=== PATIENT | female | born 2000 | race Caucasian/White ===

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

== ENCOUNTER 2022-02-21 02:21 | Day surgery (SDC) | payer OTHER, SELFPAY ==
--- NOTE | 2022-02-17 15:32 | SUR.PREOP ---
Report to the Outpatient Waiting Room, entrance under the green pavilion located off [facility], at time 1000 on date _02/21/22 . OR Time: _1200 . - You and your visitor will be asked a series of questions to screen for COVID 19 for your protection. - Only one visitor is allowed at this time. - The patient visitor is requested to leave or wait in car when not with patient. - A mask is required within the hospital. Patients may have clear liquids (water, carbonated beverages, clear teas, apple juice) until 3 hours prior to surgery with a maximum of 20 ounces. - No food from midnight until time of surgery - Infants may have breast milk until 4 hours before surgery, infant formula 6 hours prior to surgery. - Children will be allowed to drink immediately following surgery. If applicable, please bring a bottle or sippy cup to assist with drinking. Juice, water, soda, and popsicles are readily available. For infants on formula, please bring formula the day of surgery. Pacifiers are allowed. Take the following medications with a SIP of water the morning of surgery: ____n/a Medications to discontinue per physician ____ginger root Date to take last dose__02/18/22 Please no make-up, nail anguillan, hairspray, perfume, deodorant, or body powder the day of surgery. No jewelry (including any body piercings) or valuables the day of surgery, leave them at home. Please take a shower or bath the night before, or the morning of, surgery with an antibacterial soap. Wear comfortable, loose fitting clothing. Children are encouraged to wear pajamas. - Jewelry must be removed prior to entering the operating room. Rings and piercings that are not removed may be cut off. - The hospital will not accept responsibility for valuables. - Please leave all valuables, including medications, at home the day of surgery. If you are going home after surgery, a licensed caterpillar driver must drive you home. - NO public transportation without another adult. - We recommend that an adult stay with you for 24 hours following discharge. - We also recommend that you do not drive, make important decision, drink alcoholic beverages, or take any drugs that were not prescribed by your health care provider for at least 24 hours after your discharge time. For Pediatric surgeries, we recommend two adults accompany the child home (only one inside the building at this time). Follow any additional instructions given to you from your surgeon. If you or anyone in your household have experienced Covid symptoms in the past week, please notify your surgeon or the nurse liaison at the phone number below for possible testing. Telephone instructions given to celia huffman and asked if any additional questions and then verbalized understanding. Patient advised to call surgeon office or pre surgery nurse liaison [phone] if any additional questions.
[2022-02-21] VITALS (7 sets, daily range): BP systolic 107–137; BP diastolic 50–83; PULSE 50–72; RESP 12–16; TEMP 36.2–36.8; O2SAT 99–100
[2022-02-21] MEDS: ACETAMINOPHEN 500 MG TABLET 1000 MG PO (10:31)
[2022-02-21] MEDS: KETOROLAC 15 MG/ML VIAL (*BKC) IV PUSH (10:41)
[2022-02-21] MEDS: LACTATED RINGERS 1,000 ML 30 ML IV CONT ×2 (10:50→13:16)
--- NOTE | 2022-02-21 10:58 | WPDANESEPPF ---
Anes - Initial Pre Proc Eval Procedure: Operation Date: 02/21/22 12:00 Proposed Procedures p Laparoscopy, Adnexae Removal - Osvaldo Thakkar MD Date/Time: 02/21/22 10:58 Surgeon: Osvaldo Thakkar MD Pre Op Diagnosis: torsion of right ovary Patient Data Age: 21 Gender: F Height: 1.75 m Weight: 59.8 kg Last Vital Signs Temp 36.8 C 02/21/22 10:18 Pulse 70 02/21/22 10:18 Resp 16 02/21/22 10:18 BP 122/69 02/21/22 10:18 Pulse Ox 100 02/21/22 10:18 Allergies Allergy/AdvReac Type Severity Reaction Status Date / Time amoxicillin Allergy Intermediate Rash Verified 02/21/22 10:28 Home Medications Medication Instructions Recorded Confirmed Type uyen root xt-fennel sd xt 1 tab-cap PO DAILY 02/17/22 02/21/22 History ondansetron HCl [Zofran] 4 mg PO Q6H PRN 02/17/22 02/21/22 History Patient hx anesthesia problems: none Family hx anesthesia problems: none Results Review: All pre-operative results and documents have been reviewed as part of the pre-operative evaluation. [facility] Past Medical History Medical History (Updated 02/21/22 @ 10:59 by Joaquin Fernandez DO) ADD (attention deficit disorder) Anxiety Fractured nose GERD (gastroesophageal reflux disease) Right wrist fracture Surgical History Surgical History History of tonsillectomy and adenoidectomy Social History Social History Smoking status: Never smoker Tobacco type: e-cigarettes/vaping Additional smoking assessment comments: 1 year vaping Substance use: current Substance use type: marijuana Other substance usage details: smokes daily marijuana for insomnia Living arrangements: with family Spiritual care concerns: No Anes - Eval Final PreProcedure Day of Procedure 02/21/22 10:58 Patient weight: thin Heart: regular rate and rhythm Lungs: clear to auscultation and normal air movement Airway: Mallampati scale class II Neurological: alert and oriented Last oral intake: >/= 8 hours ASA classification: II Emergent: no Anesthetic plan: proceed Anesthesia type and monitoring: general ETT and standard monitoring Results Review: All pre-operative results and documents have been reviewed as part of the pre-operative evaluation. Informed Consent: The patient's anesthetic plan and its attendant risks and benefits were discussed with the patient/family/POA. Questions were solicited and answers provided to the satisfaction of the patient/family/POA.
--- NOTE | 2022-02-21 12:02 | WPDHPUPDATE1 ---
History and Physical Update Update Date/Time: 02/21/22 12:02 History and Physical has been reviewed, including an updated exam of the patient. There are NO changes in the patient's condition. Risks, benefits, and alternatives have been discussed and questions answered. Patient agrees to proceed with procedure.
--- NOTE | 2022-02-21 13:34 | W.PM.PROC2 ---
Procedure Note - Detailed Date of Procedure 02/21/22 Pre-op Diagnosis torsion of right ovary Post-op Diagnosis Same (Hemorrhagic right ovarian cyst, simple left ovarian cyst.) Procedure Performed Laparoscopic bilateral ovarian cystectomy. Surgeon Osvaldo Thakkar MD Anesthesia General Indications Pelvic pain Findings Hemorrhagic right ovarian cyst, simple left ovarian cyst. Description of Procedure The patient was taken to the operating room. She was prepped and draped in the dorsal lithotomy position after induction general anesthesia. A 5 mm incision was made with a scalpel on the abdominal skin in the left upper quadrant of the abdomen. A 5 mm trocar was inserted into the intra-abdominal cavity under direct visualization the scope. In the same fashion a 5 mm left lower quadrant trocar was inserted and a 5 mm infraumbilical trocar was inserted. Hemorrhagic right ovarian cyst was removed. This was done with the sharp and blunt dissection. The cyst was opened, area irrigation was used to clear out the hemorrhagic content, cyst capsule was removed and the cut surface were cauterized. The cyst on the left was manually transected and the edges were cauterized. Was essentially drained of its fluid. Is likely a follicular cyst and does not require removal of the capsule. The pelvis was irrigated. The pneumoperitoneum was reduced. The trocars were removed. Skin was closed with subcuticular 4 micro. The patient's incisions were covered with Dermabond. She was taken recovery room in stable condition. Sponge lap and needle counts were correct x2. Estimated Blood Loss -20.0 Urine Output -150.0 Complications No immediate complications Condition Stable Disposition Same day
[2022-02-21] MEDS: fentaNYL CITRATE INJ (*CRX) 100 MCG/2 ML VIAL 25 MCG IV PUSH ×2 (13:42→13:45)
[2022-02-21] MEDS: oxyCODONE HCL (*CRX) 5 MG TAB IR PO (14:20)
== END 2022-02-21 14:42 | disposition home or self-care (01) ==
PROVIDERS: Visit Provider Obstetrics & Gynecology
PROC: (CPT 49320; principal; 2022-02-21 12:00)
DX: N83.511 Torsion of right ovary and ovarian pedicle (principal); N83.201 Unspecified ovarian cyst, right side; N83.8 Other noninflammatory disorders of ovary, fallopian tube and broad ligament; N83.292 Other ovarian cyst, left side; F41.9 Anxiety disorder, unspecified; K21.9 Gastro-esophageal reflux disease without esophagitis; F98.8 Other specified behavioral and emotional disorders with onset usually occurring in childhood and adolescence; F17.290 Nicotine dependence, other tobacco product, uncomplicated; F12.90 Cannabis use, unspecified, uncomplicated
CPT/HCPCS: 58662; 88305; A9270; J1100; J1170; J1885; J2250; J2405; J2704; J2710; J3010; J7030; J7120

== ENCOUNTER 2022-07-29 11:54 | Emergency (ER) | payer OTHER, SELFPAY ==
--- NOTE | 2022-07-29 12:08 | ED.SKABFB ---
HPI - Skin/Abscess/Foreign Bdy General Chief complaint: Skin/Abscess/Foreign Body Stated complaint: Bee Sting Time Seen by Provider: 07/29/22 12:08 Source: patient and RN notes reviewed History of Present Illness HPI narrative: Patient is a 21-year-old female who presents the urgent care with complaints of a bee sting to the left hand. Patient states that happened yesterday and seems to be more swollen since she woke up. Patient states that it is red and itchy and she has iced it but otherwise not taken anything [id number] for her symptoms. Patient states she is . Denies any nausea, vomiting. Denies of any shortness of breath or difficulty swallowing. No other acute complaints. No acute distress noted. Patient read the plan of care. Some parts of this dictation were generated by voice recognition software and may contain typographical and/or grammatical inaccuracies. Related Data Home Medications Medication Instructions Recorded Confirmed promethazine 25 mg tablet 25 mg PO Q4-6H PRN Nausea 07/29/22 07/29/22 Allergies Allergy/AdvReac Type Severity Reaction Status Date / Time amoxicillin Allergy Intermediate Rash Verified 07/29/22 12:22 Review of Systems Review of Systems: CONSTITUTIONAL: Denies fever, chills, or sweats. EYES: Denies visual changes, redness, or discharge. ENT: Denies rhinorrhea, congestion, sore throat, or otalgia. CARDIOVASCULAR: Denies chest pain, palpitations, or edema. RESPIRATORY: Denies cough or dyspnea. GASTROINTESTINAL: Denies abdominal pain, nausea, vomiting, or diarrhea. GENITOURINARY: Denies dysuria or hematuria. SKIN: Reports a bee sting to the left hand with increased redness and swelling MUSCULOSKELETAL: Denies back pain, joint pain, or myalgia. NEUROLOGIC: Denies headache, numbness, or weakness. All other systems reviewed are negative, except as documented in HPI. [facility] Past Medical History Medical History (Updated 07/29/22 @ 12:34 by ANITHA Arboleda) ADD (attention deficit disorder) Anxiety Fractured nose GERD (gastroesophageal reflux disease) Right wrist fracture Surgical History Surgical History History of tonsillectomy and adenoidectomy Social History Social History (Reviewed 12/01/19 @ 18:03 by JASMINE Best Smoking status: Never smoker Tobacco type: e-cigarettes/vaping Additional smoking assessment comments: 1 year vaping Substance use: current Substance use type: marijuana Other substance usage details: smokes daily marijuana for insomnia Spiritual care concerns: No Comments At the time of my signature, I reviewed and agree with the nursing past medical, surgical, social, and family history. There is no relevant family history pertinent to the patient complaint. Exam Narrative: GENERAL: This is a well-nourished, well-developed patient, in no apparent distress. HEAD: normocephalic, atraumatic. EYES: PERRL. Sclera clear/white. Vision is grossly intact. EARS: External ears normal, auditory canals clear and without drainage, TMs normal without perforation. Hearing grossly intact. NOSE: External nose normal with no obvious nasal discharge, nares without redness, no rhinorrhea. THROAT: Mucous membranes moist, posterior pharynx clear. NECK: Neck supple SKIN: 8 x 5 cm mildly erythemic with mild edema noted to the dorsal aspect of the left hand. Warm, intact with no suspicious lesions or rash, good texture and turgor. NEURO: awake, alert, and oriented to person, place and time. There were no obvious focal neurologic abnormalities. EXTREMITIES: See skin. Positive strong left radial pulse with capillary refill less than 2 seconds. Course Course Level of Care: Express Care Visit Vital Signs Vital signs: Vital Signs Temperature 99.3 F 07/29/22 12:10 Pulse Rate 80 07/29/22 12:10 Respiratory Rate 16 07/29/22 12:10 Blood Pressure 109/65 07/29/22 12:
[2022-07-29 12:10] VITALS: BP 109/65; PULSE 80; RESP 16; TEMP 37.4; O2SAT 100
== END 2022-07-29 12:39 | disposition home or self-care (01) ==
PROVIDERS: Emergency Provider Nurse Practitioner Family
DX: T63.444A Toxic effect of venom of bees, undetermined, initial encounter (principal); K21.9 Gastro-esophageal reflux disease without esophagitis; F17.290 Nicotine dependence, other tobacco product, uncomplicated
CPT/HCPCS: 99211; G0463

== ENCOUNTER 2022-12-27 08:44 | Emergency (ER) | payer OTHER, SELFPAY ==
[2022-12-27 08:50] VITALS: BP 123/74; PULSE 105; RESP 16; TEMP 37.1; O2SAT 100
--- NOTE | 2022-12-27 09:08 | ED.EYEPROB ---
HPI - Eye Problem General Chief complaint: Eye Problems Stated complaint: right eye matting Source: patient and RN notes reviewed History of Present Illness HPI Narrative: 22 yo F presents to urgent care with complaints of right eye discharge and matting that started this morning. Pt denies any FB sensation, visual disturbance, or eye pain. Pt does not wear contacts. Related Data Home Medications Medication Instructions Recorded Confirmed promethazine 25 mg tablet 25 mg PO Q4-6H PRN Nausea 07/29/22 12/27/22 Allergies Allergy/AdvReac Type Severity Reaction Status Date / Time amoxicillin Allergy Intermediate Rash Verified 12/27/22 08:56 Review of Systems Review of Systems: CONSTITUTIONAL: Denies fever, chills, or sweats. EYES: Right eye discharge ENT: Denies otalgia and sore throat CARDIOVASCULAR: Denies chest pain, palpitations, or edema. RESPIRATORY: Denies cough or dyspnea. GASTROINTESTINAL: Denies abdominal pain, nausea, vomiting, or diarrhea. GENITOURINARY: Denies dysuria or hematuria. SKIN: Denies rash or itching. MUSCULOSKELETAL: Denies back pain, joint pain, or myalgia. NEUROLOGIC: Denies headache, numbness, or weakness. [facility] Past Medical History Medical History (Updated 12/27/22 @ 09:12 by Kassandra España, MARCELLUS) ADD (attention deficit disorder) Anxiety Fractured nose GERD (gastroesophageal reflux disease) Right wrist fracture Surgical History Surgical History History of tonsillectomy and adenoidectomy Social History Social History Smoking status: Never smoker Tobacco type: e-cigarettes/vaping Additional smoking assessment comments: 1 year vaping Substance use: current Substance use type: marijuana Other substance usage details: smokes daily marijuana for insomnia Living arrangements: with family Occupation/Education: student Spiritual care concerns: No Comments At the time of my signature, I reviewed and agree with the nursing past medical, surgical, social, and family history. There is no relevant family history pertinent to the patient complaint. Exam Narrative: GENERAL: This is a well-nourished, well-developed patient, in no apparent distress. HEAD: normocephalic, atraumatic. EYES: PERRL. Sclera clear/white. Vision is grossly intact. Yellow, dried, drainage noted to lashes. Right sided, lower conjunctiva injected. EARS: External ears normal, auditory canals clear and without drainage, TMs normal without perforation. Hearing grossly intact. NOSE: External nose normal with no obvious nasal discharge, nares without redness, no rhinorrhea. THROAT: Mucous membranes moist, posterior pharynx clear. NECK: Neck supple, non-tender without lymphadenopathy, masses or thyromegaly. CARDIOVASCULAR: Regular rate and rhythm without murmurs, gallops, or rubs. RESPIRATORY: Clear to auscultation. Breath sounds equal bilaterally. No wheezes, rales, or rhonchi. SKIN: warm, intact with no suspicious lesions or rash, good texture and turgor. NEURO: awake, alert, and oriented to person, place and time. There were no obvious focal neurologic abnormalities. Course Course Level of Care: Express Care Visit Vital Signs Vital signs: Vital Signs Temperature 98.7 F 12/27/22 08:50 Pulse Rate 105 H 12/27/22 08:50 Respiratory Rate 16 12/27/22 08:50 Blood Pressure 123/74 12/27/22 08:50 Pulse Oximetry 100 12/27/22 08:50 Oxygen Delivery Room Air 12/27/22 08:50 Temperature 98.7 F 12/27/22 08:50 Pulse Rate 105 H 12/27/22 08:50 Respiratory Rate 16 12/27/22 08:50 Blood Pressure 123/74 12/27/22 08:50 Pulse Oximetry 100 12/27/22 08:50 Oxygen Delivery Room Air 12/27/22 08:50 Reviewed MDM - Eye Problem MDM Narrative Medical decision making narrative: Your exam today shows Conjunctivitis, You have been given a prescription for eye drops. U
== END 2022-12-27 09:28 | disposition home or self-care (01) ==
PROVIDERS: Emergency Provider Nurse Practitioner Family; PCP Emergency Medicine
DX: H10.9 Unspecified conjunctivitis (principal)
CPT/HCPCS: 99213; G0463

== ENCOUNTER 2023-02-19 19:59 | Inpatient (IN) | payer OTHER, SELFPAY ==
[2023-02-19] VITALS (10 sets, daily range): BP systolic 115–136; BP diastolic 60–88; PULSE 60–77; RESP 16; TEMP 37.4; BMI 26.1
--- NOTE | 2023-02-19 20:25 | LDADM ---
This patient, Bri Rogers, was admitted to Labor/Delivery/Recovery 104 on 02/19/23 at 19:59. Plans for labor, pain management and were discussed with patient. Patient/family oriented to hospital policies and general routines including ID bracelet, bed and alarms, visiting hours, pain management, procedures, bathroom and other care routines, personal items, smoking policy, room service/diet and guest tray routines, infant security routines, and visiting hours. Patient/Family are encouraged to report perceived risks to care and to ask questions if they do not understand what they are told or what they should do. See [facility] for further documentation.
[2023-02-19 20:45] LABS: Basophils Percent Auto 0.3 % (0.2-1.2); Eosinophils Percent Auto 0.1 % (0-4.4); Hematocrit 35.4 % (37.0-47.0); Hemoglobin 12.3 g/dL (12.0-15.0); Immature Granulocyte Absolute 0.06 K/mm3 (0.00-0.031); Immature Granulocyte Percent A 0.4 % (0-0.5); Lymphocytes Absolute Auto 1.77 K/mm3 (0.9-3.2); Lymphocytes Percent Auto 13.2 % (18.3-44.2); Mean Corpuscular HGB Conc 34.7 g/dl (32-36); Mean Corpuscular Hemoglobin 31.8 pg (26-34); Mean Corpuscular Volume 91.5 fl (80-100); Mean Platelet Volume 11.4 fl (7.4-10.4); Monocytes Absolute Auto 0.7 K/mm3 (0.1-0.6); Monocytes Percent Auto 4.8 % (2.6-8.5); Neutrophils Absolute Auto 10.9 K/mm3 (1.3-6.7); Neutrophils Percent Auto 81.2 % (45.5-73.1); Platelet Count Result 185 k/mm3 (150-375); Red Blood Count 3.87 M/mm3 (4.2-5.4); White Blood Count 13.4 K/mm3 (4.5-10.0)
[2023-02-19] MEDS: LACTATED RINGERS 1,000 ML 125 ML IV CONT (21:02)
[2023-02-19] MEDS: OXYTOCIN 30 UNITS/NS 500 ML 30 UNITS/500 ML BAG IV CONT (21:03)
[2023-02-20] VITALS (204 sets, daily range): BP systolic 86–155; BP diastolic 49–120; PULSE 53–111; RESP 16–18; TEMP 36.5–37.9; O2SAT 96–100
[2023-02-20] MEDS: LACTATED RINGERS 1,000 ML 125 ML IV CONT ×3 (00:53→07:35)
--- NOTE | 2023-02-20 01:01 | P.PNAN_ITS ---
Anes - Eval Final PreProcedure Day of Procedure 02/20/23 01:01 Patient weight: overweight Heart: regular rate and rhythm Lungs: clear to auscultation Airway: Mallampati scale Neurological: alert and oriented ASA classification: II Anesthetic plan: proceed Anesthesia type and monitoring: regional Other findings: plt 185, ADD, IUP, GERD Results Review: All pre-operative results and documents have been reviewed as part of the pre- operative evaluation. Informed Consent: The patient's anesthetic plan and its attendant risks and benefits were discussed with the patient/family/POA. Questions were solicited and answers prov ided to the satisfaction of the patient/family/POA.
--- NOTE | 2023-02-20 07:25 | PM.IMHP ---
H&P: HPI History of Present Illness Date/Time: 02/20/23 07:25 Chief Complaint: induction of labor Narrative: Bri is a 22yo G1 at 39.3 for elective IOL. was uncomplicated except by anemia. Review of Systems Review of Systems: All systems reviewed & are unremarkable except as noted in HPI and below PMFSH Past Medical History Medical History (Updated 02/20/23 @ 07:27 by Tahira Billy MD) ADD (attention deficit disorder) Anxiety Fractured nose GERD (gastroesophageal reflux disease) Right wrist fracture Surgical History Surgical History History of tonsillectomy and adenoidectomy Family History Family History (Updated 01/31/23 @ 12:35 by Sharonda Magallon, RN) Mother Hypertension Social History Social History Smoking status: Current some day smoker Tobacco type: e-cigarettes/vaping Additional smoking assessment comments: 1 year vaping Substance use: current Substance use type: marijuana Other substance usage details: smokes marijiana occasionally and smokes occassionally Lack of Transportation: No Lack of Food: Never True Current Housing: I Have Housing Concerned About Future Housing: No Difficulty Paying Gas/Electric Bills: No Difficulty Paying for Meds: No Currently Unemployed: No Education: Grade School Difficulty w/ Childcare or Family Care: No Living arrangements: with family Occupation/Education: student Spiritual care concerns: No Meds Home Medications and Allergies Allergies Allergy/AdvReac Type Severity Reaction Status Date / Time amoxicillin Allergy Intermediate Rash Verified 02/19/23 20:23 Vital Signs Vital Signs - 24 hr 02/19/23 20:25 02/19/23 21:06 02/19/23 21:16 Temperature Pulse Rate 77 76 Respiratory Rate Blood Pressure 129/88 128/86 Pulse Oximetry Oxygen Delivery Room Air 02/19/23 20:30 02/19/23 21:31 02/19/23 22:01 Temperature 99.3 F Pulse Rate 71 72 Respiratory Rate 16 Blood Pressure 136/75 132/79 Pulse Oximetry Oxygen Delivery 02/19/23 22:16 02/19/23 22:46 02/19/23 23:01 Temperature Pulse Rate 65 60 60 Respiratory Rate Blood Pressure 128/71 118/61 115/60 Pulse Oximetry Oxygen Delivery 02/19/23 23:16 02/19/23 23:46 02/20/23 00:01 Temperature Pulse Rate 62 65 61 Respiratory Rate Blood Pressure 127/74 135/79 143/88 H Pulse Oximetry Oxygen Delivery 02/20/23 00:16 02/20/23 00:31 02/20/23 00:46 Temperature Pulse Rate 61 64 61 Respiratory Rate Blood Pressure 141/91 H 139/93 H 138/86 Pulse Oximetry Oxygen Delivery 02/20/23 01:01 02/20/23 01:02 02/20/23 01:07 Temperature Pulse Rate 54 L Respiratory Rate Blood Pressure 144/90 H Pulse Oximetry 100 100 Oxygen Delivery 02/20/23 01:12 02/20/23 01:17 02/20/23 01:18 Temperature Pulse Rate Respiratory Rate Blood Pressure Pulse Oximetry 100 100 100 Oxygen Delivery 02/20/23 01:19 02/20/23 01:20 02/20/23 01:23 Temperature Pulse Rate 79 88 Respiratory Rate Blood Pressure 125/76 129/79 Pulse Oximetry 100 Oxygen Delivery 02/20/23 01:24 02/20/23 01:25 02/20/23 01:27 Temperature Pulse Rate 75 61 101 H Respiratory Rate Blood Pressure 142/78 H 130/79 132/76 Pulse Oximetry Oxygen Delivery 02/20/23 01:28 02/20/23 01:31 02/20/23 01:33 Temperature Pulse Rate 64 59 L Respiratory Rate Blood Pressure 135/73 132/78 Pulse Oximetry 100 100 Oxygen Delivery 02/20/23 01:34 02/20/23 01:37 02/20/23 01:38 Temperature Pulse Rate 61 61 Respiratory Rate Blood Pressure 121/63 131/77 Pulse Oximetry 100 Oxygen Delivery 02/20/23 01:40 02/20/23 01:43 02/20/23 01:46 Temperature Pulse Rate 61 61 65 Respiratory Rate Blood Pressure 134/73 129/81 130/78 Pulse Oximetry 1
[2023-02-20 07:29] LABS: Rapid Plasma Reagin Non-Reactive (NonReactive)
--- NOTE | 2023-02-20 11:36 | PM.OBPRVD ---
OB - Delivery Note Procedure Delivery date: 02/20/23 Procedure: Intrapartal Events: Decelerations and Other (thick meconium) Induction method: Per Pitocin Protocol Delivery monitor: External FHT and Internal Uterine Route of delivery: Laceration Description: Perineal - 2nd Degree Delivery repair: vicryl Specimen: No Quantitative Blood Loss (ml): 210 Anesthesia type: Epidural Disposition: Floor Narrative: With adequate expulsive efforts by the mother, the baby's head was delivered OA. The baby's anterior shoulder was delivered under the pubic symphysis without difficulty. The posterior shoulder and the rest of the baby delivered without difficulty. The was placed on the mothers chest and suctioned and stimulated. The cord was clamped and cut after 30 seconds. Mother and baby both stable. [place] Baby Date of : 02/20/23 Time of : 11:14 Weeks of gestation at delivery: 39 gender: Female Weight (pounds): 7 Weight (ounces): 5 presentation: vertex Placenta delivery description: Spontaneous Cord Vessel Description: 3 Vessels and Delayed Cord Clamping score one minute: 7 score five minutes: 9
[2023-02-20] MEDS: OXYTOCIN 30 UNITS/NS 500 ML 30 UNITS/500 ML BAG 125 UNITS IV CONT (11:47)
[2023-02-20] MEDS: WITCH HAZEL 40 PADS 1 PAD TOPICAL (14:09)
[2023-02-20] MEDS: BENZOCAINE 20% AER SPR (*SP) 56 GM CAN 1 SPRAY TOPICAL (14:09)
[2023-02-20] MEDS: IBUPROFEN 600 MG TABLET PO (15:22)
--- NOTE | 2023-02-20 15:41 | PC.NURSE ---
[id number] Introductions were made, then consulted with patient to assess needs related to . Mother led the conversation with her?plans to feed?her infant and the?experience so far. Resources provided for inpatient and outpatient services with the feeding sheet, mom/baby guide and name written on the white board. Mother voiced understanding of information and consent to assistance. Encouraged understanding of the benefits of skin to skin (demonstrating unwrapping infant and placing upright on her chest), stimulating with massage touch, changing positions to encourage wakefulness, how to watch for early feeding cues, responsive feeding, feeding on demand (aiming for 8-12 times in 24 hours, about every 2-3 hours), milk production,hand expression, building/maintaining a milk supply, duration of feeding, signs of adequate intake/output and how to record on the feeding sheet. Reviewed positioning and ear, shoulder, hip alignment, supporting the breast to facilitate a deep latch, asymmetrical latch (off-center), leading with the chin with a big, open, wide gape and body close to mother. Infant did not demonstrate big, open, wide gape. is sleepy and reluctant, however; did lap up 1/2 tsp of human milk off of a spoon. Nipple care reviewed with optimal latch and good positioning. Reviewed good handwashing when or touching the breast/nipples to prevent infection. Resources used to facilitate learning were used with the tool. Mother voiced understanding of skin to skin, stimulating with massage touch, responsive feedings, hand expressed colostrum, talking to to encourage if it has been 2 -2.5 hours since the start of the last , to call if does not latch, or if there is discomfort with . Mother voiced understanding of information, demonstrated learning and will call if there is a request for assistance. Reported to the primary RN.
--- NOTE | 2023-02-20 18:47 | OBPPTRN ---
1350-Patient transferred to post room #280 via wheelchair. Support person present. Oriented to unit, room, information board, rooming in, admission packet and security measures. Patient verbalizes understanding.
[2023-02-20] MEDS: ACETAMINOPHEN 325 MG TABLET 650 MG PO (18:55)
[2023-02-21 04:15] VITALS: BP 129/87; PULSE 82; RESP 18; TEMP 36.6; O2SAT 100
[2023-02-21 05:00] LABS: Hematocrit 35.3 % (37.0-47.0); Hemoglobin 11.9 g/dL (12.0-15.0)
[2023-02-21] MEDS: IBUPROFEN 600 MG TABLET PO ×2 (06:05→17:00)
[2023-02-21 08:00] VITALS: BP 136/78; PULSE 76; RESP 16; TEMP 37.1; O2SAT 100
--- NOTE | 2023-02-21 08:09 | WPDANLDPN2 ---
Anes-Prog Note L&D Date/Time: 02/21/23 08:09 Neuro status: Neuro function grossly intact. Cardiovascular status: normal Respiratory status: normal Airway patency: baseline Mental status: baseline Post-Op hydration status: normal Vital Signs: Last Vital Signs Temp 36.6 C 02/21/23 04:15 Pulse 82 02/21/23 04:15 Resp 18 02/21/23 04:15 BP 129/87 02/21/23 04:15 Pulse Ox 100 02/21/23 04:15 O2 Del Method Room Air 02/20/23 19:27 Pain score (VAS): 0 Patient feedback: Patient satisfied with anesthetic care.
--- NOTE | 2023-02-21 08:22 | P.PNOB_ITS ---
OB - PN: Subj Subjective Date/time seen: 02/21/23 08:22 Patient comments: no complaints and pain well controlled baby status: doing well [place] feeding status: exclusively breast feeding OB - PN: Obj Data Labs 02/21/23 03:59 Labs: Laboratory Results - last 24 hr 02/21/23 03:59 Hgb 11.9 L Hct 35.3 L OB - PN A/P Plan day: 1 Plan: routine care Comments: Home tomorrow Time Spent With Patient Time: Total time spent is greater than 50% in coordination of care (as documented) at patient's floor/unit and/or counseling patient: Time with patient: less than 15 minutes Exam Narrative: NAD abdomen soft, nontender, fundus firm below the umbilicus Extremities nontender, 1+ edema
[2023-02-21] MEDS: MULTIVIT/MIN/PREN/FOL AC/IRON TABLET 1 TAB PO (09:50)
--- NOTE | 2023-02-21 10:51 | PC.NURSE ---
[phone] Purposefully rounded to assess needs related to . Mother led the conversation with her?plans to feed?her and the?experience so far. Encouraged skin to skin, stimulate with massage touch, and to call for assistance if doesn't wake up to breastfeed or there's pain with the latch. Primary RN is present assessing the infant. [phone] RN was requested to assess the latch. Mother has infant latched to the left breast using cross cradle positioning and dimpling is visualized. 's mouth is 90 degrees and suggested to mother to detach infant to assess nipple. Nipple is misshaped after detach. Suggested practicing a football hold and mother is open to practice. Reviewed positioning and ear, shoulder, hip alignment, supporting the breast to facilitate a deep latch, asymmetrical latch (off-center), leading with the chin with a big, open, wide gape and body close to mother. latched optimally to the left breast in football position. Education given to parents of how to visualize suck/swallow ratios and listen for drinking at the breast. Infant was able to maintain latch without discomfort to mother for 10 minutes, then infant repositions mouth and mother states there's now a pinchy pain. Infant is detached. Nipple care reviewed with optimal latch and good positioning. Infant is placed vertically [id number] upright on mother's chest. Once feeding cues are visualized, then infant is brought to the right breast in football position. Mother reminded to use the sandwich hold to facilitated giving infant a mouthful when there's a big, open, wide gape. Infant latched optimally to the right breast and mother denies pain stating the latch feels better than it did before. Reviewed good handwashing when or touching the breast/nipples to prevent infection. Mother voiced understanding of skin to skin, stimulating with massage touch, responsive feedings, talking to to encourage if it has been 2 -2.5 hours since the start of the last , to call if does not latch, or if there is discomfort with . Resources provided for inpatient/outpatient with feeding sheet and the mom/baby guide. Parents voiced understanding of information, demonstrated learning and will call if there is a request for assistance. Reported to the primary RN.
--- NOTE | 2023-02-21 14:07 | PC.NURSE ---
[phone] Consulted with patient to assess needs related to . Mother works well with her infant with encouragement. Reviewed working with infant, supporting breast and how to protect the nipples with an optimal deep latch, good positioning, and good hand washing. Encouraged understanding the benefits of skin to skin, responding to feeding cues, frequencies of feeding 8-12 times in 24 hours (approximately 2-3 hours), duration of feedings, milk production, intake/output feeding sheet and signs of adequate intake encouraging swallowing at the breast. Reviewed positioning and alignment, supporting breast, off-centered (asymmetrical latch) and leading with the chin with big, open, wide gape. Infant latched optimally to the right breast in football position. Education given to mother of how to visualize suck/swallow ratios and listen for drinking at the breast. Infant was able to maintain latch without discomfort to mother. Nipple care reviewed with optimal latch, good positioning and using clean hands when feeding her and touching her breast. Resources used to facilitate learning were used from the tool, mom and baby guide. Mother voiced understanding of the education shared, to call for assistance if the does not latch or if there is discomfort with . Reported to the primary RN.
--- NOTE | 2023-02-21 14:15 | PC.NURSE ---
[id number] Consulted with patient to assess needs related to . Mother led conversation with her experience with feeding baby so far. Mother works well with her with encouragement. Reviewed working with , supporting breast and how to protect the nipples with an optimal deep latch, good positioning, and good hand washing. Encouraged understanding the benefits of skin to skin, responding to feeding cues, frequencies of feeding 8-12 times in 24 hours (approximately 2-3 hours), duration of feedings, milk production, intake/output feeding sheet and signs of adequate intake encouraging swallowing at the breast. Nipple care reviewed with optimal latch, good positioning and using clean hands when feeding her and touching her breast. Resources used to facilitate learning were used from the [visual handout/QR codes/ tool/mom and baby guide]. Mother voiced understanding of the education shared, to call for assistance if the does not latch or if there is discomfort with .
--- NOTE | 2023-02-21 15:43 | PC.NURSE ---
[phone] Patient called for assistance. Encouraged and mother with attempting to on both breast. Infant latches shallow and doesn't latch with no pain to mother. Infant is sleepy and reluctant to open, with a wide gape. Discussed feeding options with parents and Primary RN. Testing will be done on infant while mother initiates pumping. Blood sugar was obtained and resulted at 52mg/dl. Primary RN will lead the feeding with the breast milk that is expressed and formula if needed to supplement infant.
[2023-02-21] MEDS: DOCUSATE SODIUM 100 MG CAPSULE PO (17:00)
[2023-02-21 19:40] VITALS: BP 127/80; PULSE 80; RESP 18; TEMP 37.3
--- NOTE | 2023-02-21 19:40 | PC.NURSE ---
Patient instructed to view the discharge video Mother & Baby Care, The First Two Weeks online. Patient was given the opportunity and encouraged to ask questions. Patient verbalized understanding of information shared and has been given the mother/baby guide for home reference.
[2023-02-22] MEDS: IBUPROFEN 600 MG TABLET PO (04:51)
[2023-02-22] MEDS: TETANUS,DIPHTHERIA,AC PERTUSSIS ADULT (0.5 ML) BOOSTRIX IM (04:52)
[2023-02-22 06:59] VITALS: BP 127/75; PULSE 66; RESP 18; TEMP 36.4; O2SAT 100
[2023-02-22] MEDS: DOCUSATE SODIUM 100 MG CAPSULE PO (07:08)
[2023-02-22] MEDS: MULTIVIT/MIN/PREN/FOL AC/IRON TABLET 1 TAB PO (07:08)
--- NOTE | 2023-02-22 07:45 | P.PNOB_ITS ---
OB - PN: Subj Subjective Date/time seen: 02/22/23 07:45 Patient comments: no complaints baby status: doing well [place] feeding status: breast and bottle feeding OB - PN: Obj Data Labs 02/21/23 03:59 OB - PN A/P Plan day: 2 Plan: routine care and discharge home Comments: DC instructions given Time Spent With Patient Time: Total time spent is greater than 50% in coordination of care (as documented) at patient's floor/unit and/or counseling patient: Time with patient: less than 15 minutes Exam Narrative: NAD abdomen soft, nontender, fundus firm below the umbilicus Extremities nontender, 1+ edema
--- NOTE | 2023-02-22 07:46 | P.DS_ITS ---
DS: Admitting Diagnosis Discharge Date 02/22/23 Admitting Diagnosis term IUP, elective IOL DS: Discharge Diagnosis Discharge Diagnosis (1) , delivered: Code(s): O80 - Encounter for full-term uncomplicated delivery Status: Acute OB - DS: Summary Hospital Course Hospital Course: Brenda was admitted for elective IOL. She proceeded to have an uncomplicated vaginal delivery and course and was discharged home on PPD2. OB Procedures : Ultrasound OB Procedures Intrapartum: Spontaneous Vag Delivery OB Procedures: : None Peripartum Data Infant Delivery Method: Natural Vaginal complications: none Status at Discharge Functional status at discharge: independent ambulation Time Spent with Patient Time attestation: Total time spent providing and/or coordinating discharge services: Exam Narrative: NAD abdomen soft, appropriately tender Ext non tender, 1+ edema Discharge Plan Discharge Attending physician on discharge: Tahira Billy Discharging Clinician: Tahira Billy Anticipated Discharge Date/Time: 02/22/23 08:23 Patient Disposition: Home, Self-Care Activity: pelvic rest Diet: regular Patient Instructions: Antibiotic Form Stand Alone Forms: General Discharge Information Follow-up/Referrals: Tahira Billy MD [Physician] - 4 Weeks Date of admission: 02/19/23 19:59 Primary Care Provider: PHYSICIAN,SENIOR DATABASE PROGRAMMER Admitting Provider: Osvaldo Thakkar Attending physician on admission: Osvaldo Thakkar Condition: Stable
--- NOTE | 2023-02-22 08:39 | PC.NURSE ---
On 02/22/23, the student, Yvonne Salinas, provided care and completed [facility] documentation on this patient. I have reviewed the student's documentation and agree with the findings.
--- NOTE | 2023-02-22 10:29 | PC.NURSE ---
[phone] Purposefully rounded to assess needs. Mother states will not latch and she is bottle feeding. Encouraged consistently pumping to protect the milk supply and offered assistance with . Mother voiced understanding of information and will call if she requests assistance with latching.
[2023-02-23 10:30] VITALS: BP 131/79; PULSE 102; RESP 18; TEMP 37.5; O2SAT 100
== END 2023-02-22 13:03 | disposition home or self-care (01) | DRG 807 ==
LOC: ANHOB2 02-22 08:03 → ANHLDR 02-23 09:09 → ANHOB2 02-23 09:09
PROVIDERS: Admitting Provider Obstetrics & Gynecology; Visit Provider Obstetrics & Gynecology
DX: O99.02 Anemia complicating childbirth (principal); Z37.0 Single live birth; Z3A.39 39 weeks gestation of pregnancy; D64.9 Anemia, unspecified; O69.81X0 Labor and delivery complicated by cord around neck, without compression, not applicable or unspecified; O77.0 Labor and delivery complicated by meconium in amniotic fluid; O70.1 Second degree perineal laceration during delivery; O99.62 Diseases of the digestive system complicating childbirth; K21.9 Gastro-esophageal reflux disease without esophagitis; O99.344 Other mental disorders complicating childbirth; F98.8 Other specified behavioral and emotional disorders with onset usually occurring in childhood and adolescence
CPT/HCPCS: 36415; 85014; 85018; 85025; 86592; 86850; 86900; 86901; 90715; A9270; J2590; J2795; J7120

== ENCOUNTER 2025-05-27 12:24 | Emergency (ER) | payer OTHER, SELFPAY ==
--- NOTE | ~2025-05-27 | XR_ITS ---
XR hand RT min 3V 05/27/2025 12:58 INDICATION: Right hand pain status post fall PROCEDURE: 3 views right hand COMPARISON: No prior studies for comparison. FINDINGS: Fracture, dislocation or subluxation is not identified. The soft tissues appear within norm al limits. No foreign bodies are identified. IMPRESSION: 1: NO ACUTE BONE OR JOINT ABNORMALITY IDENTIFIED. Reviewed, dictated and finalized at location A.
--- OUTSIDE RECORDS SUMMARY | 2025-05-27 12:27 | XMS_ITS | Clinical Summary ---
Author Organization [facility] Address [address] [place] [address] Care Team Providers Care Washcoat Wiper Name Role Phone Unavailable Primary Care Provider Unavailabl e Source Comments [facility],non-owned Affiliates and Associated Physician Practices is amultiple site organization consisting of ambulatory clinics and hospital sitesin [place], [place] and [place]. This disclosure is being madepursuant to the Care Everywhere program and may not contain all information available regarding this patient. Last updated 18.[facility] Allergies Active Allergy Reactions Criticality Noted Date Comments Amoxicillin Rash Medium 12/03/2019 Medications * Be aware that medications may not be up to date on this document. Alwaysverify current medications with the patient. TAGAMET HB 200 MG tablet TK 2 TS PO BID FOR 30 DAYS 2 6 Active sertraline (ZOLOFT) 50 MG tablet 7 Active HYDROcodone-maryjane taminophen (NORCO) 5-325 MG tablet Take 1 tablet by mouth every 6 hours as needed 1 Active ondansetron, disintegrating, (ZOFRAN ODT) 4 MG tablet 2 Active Felicia, Zingiber officinalis, 550 MG Take 1 capsule by mouth 3 times daily as needed 90 capsule 1 2 Active Additional Information Patient not taking.Reported on 02/07/2022 Active Problems Problem Noted Date Diagnosed Date Plantar warts 10/28/2016 Overview (10/28/2016): onset age 14, minimal response S/P cryo Q2wk X 6 10/28/16 anticipatory guidance, paring + liq. N2 Family History Medical History Relation Name Comments Allergies Father Blood Clots Maternal Grandfather Acne Mother Allergies Paternal Grandfather Heart Disease Paternal Grandfather Heart Disease Paternal Grandmother Relation Name Status Comments Father Maternal Grandfather Mother Paternal Grandfather Paternal Grandmother Social History Tobacco Use Types Packs/Day Years Used Date Smoking Tobacco: Never Smokeless Tobacco: Never Alcohol Use Standard Drinks/Week Comments No 0 (1 standard drink = 0.6 oz pur e alcohol) Comments Unknown Sex and Gender Information Value Date Recorded Sex Assigned at Not on file 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 Gender Identity Not on file Sexual Orientation Not on file Last Filed Vital Signs Vital Sign Reading Time Taken Comments Blood Pressure 116/84 02/07/2022 12:15 PM CDT Pulse 52 02/07/2022 12:16 PM CDT Temperature 36.4 C (97.6 F) 02/07/2022 12:00 PM CDT Respiratory Rate 10 02/07/2022 12:16 PM CDT Oxygen Saturation 100% 02/07/2022 12:16 PM CDT Inhaled Oxygen Concentration - - Weight 61.3 kg (135 lb 1.6 oz) 02/07/2022 10:50 AM CDT Height 172.7 cm (5' 8) 02/07/2022 10:50 AM CDT Body Mass Index 20.54 02/07/2022 10:50 AM CDT Plan of Treatment Health Maintenance Due Date Last Done Comments HIV SCREENING 2017 HPV VACCINE (1 - 3-dose series) 2017 CHLAMYDIA/GONORRHEA SCREENING 2018 MENINGOCOCCAL (Group B) VACC INE SHARED DECISION-MAKING (1 of 2 - Standard) 2018 HEPATITIS C SCREENING 11/11/2020 DTAP/TDAP/TD VACCINES (1 - Tdap) 2021 HEPATITIS B VACCINE (1 of 3 - 19+ 3-dose series) 2021 COVID-19 VACCINE (1 - 2023-2 5 season) 2024 DEPRESSION SCREENING 10/23/2024 INFLUENZA VACCINE (#1) 2025 ZOSTER VACCINE (1 of 2) 2052 HIB VACCINE Aged Out No longer eligi ble based on patient's age to complete this topic MENINGOCOCCAL GROUPS A/C/Y/W VACCINE Aged Out No longer eligible b ased on patient's age to complete this topic PNEUMOCOCCAL VACCINE Aged Out No long er eligible based on patient's age to complete this topic Insurance [place] [address] [facility] [place] [address] [facility] CIG
--- OUTSIDE RECORDS SUMMARY | 2025-05-27 12:27 | XMS_ITS | Clinical Summary ---
Author Organization [facility] Address [address] [place] [address] Phone Care Team Providers Care Creative Services Coordinator Name Role Phone David Triplett MD Primary Care Provider [phone] Allergies Active Allergy Reactions Criticality Noted Date Comments Amoxicillin Rash 07/21/2020 Medications Sertraline HCl (ZOLOFT PO) Take by mouth. Active ondansetron (ZOFRAN) 4 MG Tablet Take 1 Tablet by mouth every 8 hours as needed for Nausea - 1st line. 10 Tablet 06/06/2021 Active ondansetron (ZOFRAN-ODT) 4 MG TABLET DISPERSIBLE Take 1 Tablet by mouth every 8 hours as needed for Nausea - 2nd line (vomiting). 10 Tablet 01/27/2022 Active Social History Tobacco Use Types Packs/Day Years Used Date Smoking Tobacco: Never Smokeless Tobacco: Never Alcohol Use Standard Drinks/Week Comments Never 0 (1 standard drink = 0.6 oz pur e alcohol) AUDIT-C Answer Date Recorded Q1: How often do you have a drink containing alc ohol? Never 07/21/2020 Average Number of Drinks Not on file 020 Frequency of Binge Drinking Not on file 06/24 Comments Unknown Sex and Gender Information Value Date Recorded Sex Assigned at Not on file Legal Sex Female 8:06 PM CDT Gender Identity Not on file Sexual Orientation Not on file Last Filed Vital Signs Vital Sign Reading Time Taken Comments Blood Pressure 130/84 06/25/2022 1:19 AM CDT Pulse 88 06/25/2022 1:19 AM CDT Temperature 37.1 C (98.7 F) 06/24/2022 9:11 PM CDT Respiratory Rate 18 06/25/2022 1:19 AM CDT Oxygen Saturation 98% 06/25/2022 1:19 AM CDT Inhaled Oxygen Concentration - - Weight 61.2 kg (135 lb) 06/24/2022 9:11 PM CDT Height 175.3 cm (5' 9) 06/24/2022 9:11 PM CDT Body Mass Index 19.94 06/24/2022 9:11 PM CDT Plan of Treatment Health Maintenance Due Date Last Done Comments Hepatitis C Virus (HCV) Screening 2002 Meningococcal B Immunization (1 of 2 - Standard) 2018 Pap Smear 2023 SARS-COV-2 Immunization ( - season) 2024 Influenza Immunization (#1) 2025 08/16/2011, 1 2002 Respiratory Syncytial Virus (RSV) Immunization (Adult) (1 - 1-dose 75+ series) 2077 Hepatitis B Immunization Completed 003, 01/14/2003, 2002 Pneumococcal Immunization Combined Aged Out 05/19/2003, 03/18/2003, 01/14/2003 No longer eligible based on patient's age to complete this topic Measles Mumps Rubella (MMR) Immunization Discontinued 05/22/2007, 11/24/2003 Polio (IPV) Immunization Discontinued 007, 12/12/2003, 11/24/2003, Additional history exists Varicella Immunization Discontinued 05/22/2007, 2003 DTaP/Tdap/Td Immunization Discontinued 2013, 05/22/2007, 02/19/2004, Additional history exists TdaP Immunization Completed 07/08/2014 Hepatitis A Immunization Discontinued 02/08/2017, 06/23 Human Papillomavirus (HPV) Immunization Completed 09/07/2020, 02/08/2017 Meningococcal Immunization (ACWY) Completed 09/07/2020, 07/08/2014 Rotavirus Immunization Aged Out No lo nger eligible based on patient's age to complete this topic Insurance MEDICAID [employer] Care Teams Creative Services Coordinator Relationship Specialty Start Date End Date David Triplett MD [address] [place] [id number] PCP - General Emergency Medicine 07/21/20
--- OUTSIDE RECORDS SUMMARY | 2025-05-27 12:27 | XMS_ITS | Clinical Summary ---
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 4 Tablet 06/11/2021 Active norethin-e.estra diol triphasic ([facility] , 28,) 0.5/0.75/1 mg- 35 mcg tabletIndication s:Encounter for medication refill Take 1 Tablet by mouth daily. 90 Tablet 4 11/18/2021 Active Active Problems Problem Noted Date Diagnosed Date Joint laxity 11/04/2020 Irritable bowel syndrome with diarrhea 0 Anxiety state 09/13/2019 Intractable migraine without aura and with status migrainosus 09/13/2019 Resolved Problems Problem Noted Date Diagnosed Date Resolved Date Abdominal pain, right upper quadrant 08/28/2020 11/04/2020 Non-intractable vomiting 12/26/201906/2020 RLQ abdominal pain 12/12/2019 0 Mesenteric lymphadenitis 12/12/2019 Family History Medical History Relation Name Comments No Known Problems Brother No Known Problems Father Stroke Maternal Grandfather No Known Problems Maternal Grandmother No Known Problems Mother Hypertension Paternal Grandfather Cancer Paternal Grandmother No Known Problems Sister Relation Name Status Comments Brother Alive Father Alive Maternal Grandfather Maternal Grandmother Alive Mother Alive Paternal Grandfather Alive Paternal Grandmother Sister Alive Social History Tobacco Use Types Packs/Day Years Used Date Smoking Tobacco: Never Smokeless Tobacco: Never Alcohol Use Standard Drinks/Week Comments No 0 (1 standard drink = 0.6 oz pur e alcohol) Comments No Sex and Gender Information Value Date Recorded Sex Assigned at Not on file Legal Sex Female 10:14 AM CDT Gender Identity Not on file Sexual Orientation Not on file Last Filed Vital Signs Vital Sign Reading Time Taken Comments Blood Pressure 114/68 06/09/2021 2:00 PM CDT Pulse 111 06/09/2021 2:00 PM CDT Temperature 37.1 C (98.7 F) 06/09/2021 2:00 PM CDT Respiratory Rate 16 06/09/2021 2:00 PM CDT Oxygen Saturation 98% 06/09/2021 2:00 PM CDT Inhaled Oxygen Concentration - - Weight 65.3 kg (144 lb) 06/09/2021 2:00 PM CDT Height 168.9 cm (5' 6.5) 06/09/2021 2:00 PM CDT Body Mass Index 22.89 06/09/2021 2:00 PM CDT Plan of Treatment Health Maintenance Due Date Last Done Comments CHLAMYDIA SCREENING (ANNUAL) 11-24 YEARS 2013 HPV VACCINES (1 - 3-dose series) 2017 DTAP/TDAP/TD VACCINES (1 - Tdap) 2021 HEPATITIS B VACCINES (1 of 3 - 19+ 3-dose series) 10/24 CERVICAL CANCER SCREENING 2023 HPV/Cotest (21-29) 2023 PAP SMEAR 2023 INFLUENZA VACCINE (#1) 2025 Insurance OPTIONS PPO [id number] * Guarantor: [employer] Account Type Relation to Patient Date of Phone Billing Address Corporate Employer ATTN: NEVA AKBAR [id number] [address]
[2025-05-27 12:30] VITALS: BP 123/86; PULSE 89; RESP 16; TEMP 37; O2SAT 100
--- NOTE | 2025-05-27 12:51 | ED_ITS ---
HPI - Extremity Injury (Upper) General Chief Complaint: Extremity Injury, Upper Stated Complaint: Right hand injury Source: patient Mode of arrival: ambulatory Limitations: no limitations History of Present Illness HPI narrative: 24 y/o female presented for c/o right hand pain x3 weeks. Says she fell onto the hand behind her trying to catch herself, at onset. Says she had no swelling, bruising or deformity. Endorses a 'knot' to the top of the hand, which is tender and shoots pain through the fingers. Denies numbness, tingling or weakness. Related Data Home Medications ?Medication ?Instructions ?Recorded ?Confirmed ?Last Taken ?Type No Home Medications 05/27/25 Unknown History Allergies Allergy/AdvReac Type Severity Reaction Status Date / Time amoxicillin Allergy Intermediate Rash Verified 05/27/25 12:37 Review of Systems Review of Systems: CONSTITUTIONAL: Denies body aches, fever, chills EYES: Denies visual changes ENT: Denies rhinorrhea, congestion CARDIOVASCULAR: Denies chest pain, palpitations, or edema. RESPIRATORY: Denies cough or dyspnea. SKIN: Denies rash, itching, or wounds. MUSCULOSKELETAL: reports right hand pain NEUROLOGIC: Denies numbness, tingling, or weakness. All systems reviewed & are unremarkable except as noted in HPI and below PMFSH Past Medical History Medical History (Updated 05/27/25 @ 13:28 by Venus Hatch APRN) ADD (attention deficit disorder) Right wrist fracture Fractured nose GERD (gastroesophageal reflux disease) Anxiety Surgical History Surgical History History of tonsillectomy and adenoidectomy Family History Family History (Updated 01/31/23 @ 12:35 by Sharonda Magallon RN) Mother Hypertension Social History Social History Smoking status: Current some day smoker Tobacco type: e-cigarettes/vaping Additional smoking assessment comments: 1 year vaping Substance use: current Substance use type: marijuana Other substance usage details: smokes marijiana occasionally and smokes occassionally Lack of Transportation: No Lack of Food: Never True Current Housing: I Have Housing Concerned About Future Housing: No Difficulty Paying Gas/Electric Bills: No Difficulty Paying for Meds: No Currently Unemployed: No Education: Grade School Difficulty w/ Childcare or Family Care: No Living arrangements: with family Occupation/Education: student Spiritual care concerns: No Comments At time of signature, I have reviewed and agree with nursing past medical, surgical, social and family history unless otherwise noted. Please see nursing chart for further information. There is no relevant family history pertinent to the presenting complaint Exam Narrative: GENERAL: Well-appearing CHEST: Speaks in full sentences. No respiratory distress. HEART: Regular rate and rhythm. Normal and equal peripheral pulses. EXTREMITIES: Right hand has normal strength and sensation, normal range of motion at wrist. Subcutaneous nodule between the proximal 2nd and 3rd metacarpals, mild tenderness with palpation, not moveable, no erythema. No edema or ecchymosis, No open wounds, or obvious deformity; alignment normal, pulse palpable and equal bilaterally, skin warm, dry, pink. Capillary refill less than 3 seconds. SKIN: Warm, dry NEURO: Alert and oriented x3. PSYCH: Normal mood and affect Course Course Emergency Course: Patient is aware of diagnosis, understands and agrees to treatment plan. Anticipatory guidance given. Patient agrees to follow-up as directed and is aware of reasons to seek care at the emergency department. Portions of this record may have been created with voice recognition software Level of Care: Express Care Visit Vital Signs Vital signs: Vital Signs Temperature 98.6 F 05/27/25 12:30 Pulse Rate 89 05/27/25 12:30 Respiratory Rate 16 05/27/25 12:30 Blood Pressure 123/86 05/27/25 12:30 Pulse Oximetry 100 05/27/25 12:30 Oxygen Delivery Room Air 05/27/25 12:30 Temperature 98.6 F 05/27/25 12:30 Pulse Rate 89 05/27/25 12:30 Respiratory Rate 16 05/27/25 12:30 Blood Pressure 123/86 05/27/25 12:30 Pulse Oximetry 100 05/27/25 12:30 Oxygen Delivery Room Air 05/27/25 12:30 Reviewed MDM - Extremity Injury (Upper) MDM Narrative Medical decision making narrative: Discussed physical exam findings and xray with pt. most c/w ganglion cyst. TATI applied, pt can f/u with Dr Ghotra, v/u. Advised supportive measures and signs/symptoms to go to the ER. Pt is appropriate for outpt treatment and f/u. Differential Diagnosis Differential diagnosis: Likely other (sprain/strain of wrist, Colles' fracture, wrist fracture, hand fracture, finger sprain, dislocation of finger, gout, cellulitis, arthritis, tendonitis) Imaging Data Radiologist's impression: Patient: Bri Rogers : 2000 MR#: [id number] Age: 24 Acct:[id number] Loc: [facility] ADM Date: 05/27/25Attending Dr: ALONDRA hand RT min 3V 05/27/2025 12:58 INDICATION: Right hand pain status post fall PROCEDURE: 3 views right hand COMPARISON: No prior studies for comparison. FINDINGS: Fracture, dislocation or subluxation is not identified. The soft tissues appear within normal limits. No foreign bodies are identified. IMPRESSION: 1: NO ACUTE BONE OR JOINT ABNORMALITY IDENTIFIED. Discharge Plan Discharge Clinical Impression: Hand pain, right Patient Disposition: Home Condition: Stable Instructions: Antibiotic Form, Ganglion Cyst (ED) Additional Instructions: Rest and elevate the hand, activity as tolerated Apply ice 15-20 minute intervals several times a day Motrin 600mg alternate with Tylenol 1000mg every 8 hours as needed Follow up with your primary care provider as needed You can follow-up with a hand specialist Go to the ER for any worsening symptoms or concerns Patient Language: Taiwanese Prescriptions: No Action No Home Medications Follow-up/Referrals: Rohini Ghotra MD [Physician] - PHYSICIAN,CNC MAINTENANCE MECHANIC [Primary Care Provider] - Time of Disposition: 13:28
== END 2025-05-27 13:32 | disposition home or self-care (01) ==
PROVIDERS: Emergency Provider Nurse Practitioner Family
DX: M79.641 Pain in right hand (principal); F17.290 Nicotine dependence, other tobacco product, uncomplicated; F12.90 Cannabis use, unspecified, uncomplicated; K21.9 Gastro-esophageal reflux disease without esophagitis
CPT/HCPCS: 73130; 99213; G0463

== ENCOUNTER 2025-08-19 15:47 | Outpatient (CLI) | payer OTHER, SELFPAY ==
--- OUTSIDE RECORDS SUMMARY | 2019-07-26 11:00 | XMS_ITS | Continuity of Care Document ---
Author Organization [facility] Address [address] [place] [address] [place] [phone] Phone Care Team Providers Care Services Host Name Role Phone Shahid Castano PTA Unavailable Unavailable Procedures Procedure Date Therapeutic Activities Neuromuscular Re-Ed Therapeutic Exercise Manual Therapy Therapeutic Activities Neuromuscular Re-Ed Therapeutic Exercise Manual Therapy Therapeutic Activities Neuromuscular Re-Ed Manual Therapy Therapeutic Exercise Progress Note Neuromuscular Re-Ed Therapeutic Activities Manual Therapy Therapeutic Exercise Hot or Cold Pack Therapeutic Activities Neuromuscular Re-Ed Therapeutic Exercise Manual Therapy Therapeutic Activities Therapeutic Exercise Neuromuscular Re-Ed Manual Therapy Hot or Cold Pack Therapeutic Activities Therapeutic Exercise Hot or Cold Pack Therapeutic Activities Therapeutic Exercise Hot or Cold Pack Manual Therapy PT Evaluation Low Complexity Therapeutic Exercise Therapeutic Activities Manual Therapy Hot or Cold Pack Advance Directives Directive Yes / No Effective Date File Name No Information Encounters Encounter Description Practice Location Reason(s) For Visit Diagnoses Date Provider Providers Copied on Encounter [facility], [place], [place], [id number], tel:[phone] [place] No Information Eyad Key. [id number] [facility], [address], [place], [place], [facility], . tel:[phone] [facility] [address], [place], [place], [id number], tel:[phone] [place] No Information Jc Baron. . [facility] [address], [place], [place], [id number], tel:[phone] [place] No Information Eyad Key. [address] [place] [address], [facility] [address], [place], [facility], . tel:[phone] [facility] [address], [place], [place], [id number], tel:[phone] [place] No Information Jc Baron. . [facility], [place], [place], [id number], tel:[phone] [place] No Information Jc Baron. . [facility], [place], [place], [id number], tel:[phone] [place] No Information Jc Baron. . [facility], [place], [place], [id number], [place] tel:[phone] [place] No Information Eyad Key. [address] [place] [address], [address], [place], [place], [facility], . tel:[phone] [facility], [place], [place], [id number], tel:[phone] [place] No Information Jc Baron. . [facility], [address] [facility], [place], [place], [id number], [place] tel:[phone] [place] No Information Jc Baron. . Family History Family Member Type Diagnosis Age At Onset No Information Payers Payer name Insurance type Covered green party ID Steph montano(s) R CI [id number] Social History Type Description Quantity Date Captured Comments Sex Female Smoking Status No Information Chief Complaint And Reason For Visit No Information Reason For Referral Reason For Referral No Information History Of Present Illness Encounter Date Complaint History Of Prese nt Illness No Information Functional Status Date Functional Assessmen t No Information Instructions Date Instruction Additional Infor mation No Information Assessments Type Assessment Date No Information Patient Care Teams Name Effective Dates (start - stop) Status Members No Information
--- NOTE | ~2025-08-19 | MR_ITS ---
EXAMINATION: MR wrist RT wo/w con DATE: 08/19/2025 17:04 INDICATION: Assess for right wrist occult ganglion versus extensor tendinitis with mass at the dorsum of the carpus. TECHNIQUE: Magnetic resonance imaging (MRI) of the right wrist was performed without and with 12 mL Multihance intravenous contrast. Sequences performed include axial PD-weighted FSE, PD-weighted FS FSE and T1-weighted FS FSE, coronal PD-weighted FS FSE and T1-weighted SE, sagittal PD-weighted FS FSE and PD-weighted FSE and post contrast axial, sagittal and coronal T1-weighted FS FSE. COMPARISON: None FINDINGS: Small amount of motion artifact which does not significantly limit evaluation. Intrinsic ligaments: The scapholunate and lunotriquetral ligaments are normal. Triangular fibrocartilage complex (TFCC): The triangular fibrocartilage including its foveal and styloid attachments as well as the dorsal and volar radioulnar ligaments are normal. The ulnar collateral ligament, ulnotriquetral ligament and meniscal homologue are normal. There is a tear of the ulnar side of the extensor carpi ulnaris (ECU) sub sheath resulting in ulnar subluxation of the otherwise normal extensor carpi ulnaris tendon across the ulnar rim of the ECU groove. Extensor wrist: Extensor tendons of the wrist are normal. No tenosynovitis. Flexor wrist: The flexor tendons of the wrist are normal. No abnormality in the carpal tunnel with normal median nerve. Guyon's canal: Guyon's canal including the ulnar nerve and artery are normal. Bones/other: Bone alignment is normal. No fracture, erosions, avascular necrosis or pathologic marrow replacing process. Joint spaces are relatively preserved throughout. Marrow signal is normal. There is carpal bossing with mild dorsal excrescence the bone at the base of the third metacarpal and juxtaposed dorsal aspect of the distal margin of the capitate. This underlies the marker and likely represents the etiology for the reported palpable abnormality of concern. No ganglion cyst or other abnormal fluid collections. No abnormally enhancing masses. IMPRESSION: 1. Carpal bossing at the articulation between the capitate and the base of the third metacarpal which underlies the marker indicating the palpable abnormality of concern. No ganglion cyst or abnormally enhancing masses. 2. Tear of the ulnar side of the extensor carpi ulnaris some sheath resulting ulnar subluxation of the normal extensor carpi ulnaris tendon across the ulnar rim of the ECU groove. Reviewed, dictated and finalized at location A. IMPRESSION: 1. Carpal bossing at the articulation between the capitate and the base of the third metacarpal which underlies the marker indicating the palpable abnormality of concern. No ganglion cyst or abnormally enhancing masses. 2. Tear of the ulnar side of the extensor carpi ulnaris some sheath resulting u lnar subluxation of the normal extensor carpi ulnaris tendon across the ulnar r im of the ECU groove.
--- OUTSIDE RECORDS SUMMARY | 2025-08-19 17:44 | XMS_ITS | Data Portability ---
Author Organization [facility] [place] Address [address] [place] [place] [address] Assessment Encounter Date Assessment Date Assessment LastModified by Organization Details LastModified Time 11/29/2023 11/29/2023 Annual gynecological exam performed. Patient will come back in a year unless there are new symptoms. [email or web address] Not available 11/29/2023 16:04:54 Plan of Treatment Reminders Order Date Submit Date Provider Last Modified By Organization Details Last Modified Time Details Appointments None recorded. Lab None recorded. Referral None recorded. Procedures None recorded. Surgeries None recorded. Imaging US, transvagina l 2023 024 [email or web address] [place], [address], [address], [place], [address], 17:32:07 US, transvagina l [email or web address], [address], [address], [place], [address], 19:55:51 Medication Orders None recorded. Patient TargetsNo targets recorded. Patient InstructionsNo instructions recorded. Reason for Referral None Reported. 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 Elect jaquan huitron jenni d by Kiarra Vaughan ret, CT on 2023 at 4:39 PM ----- ----- ----- ----- ----- ----- ----- ----- ----- ----- ----- ----- ----- ----- ----- ----- ----- ---- COMME NT: This speci men was revie wed by a Cytot echno logis t and/o r Patho logis t (as indic ated in this repor t) after evalu ation using the Thinp rep Imagi ng Syste m. CLINI АЛЕКСАНДР INFOR MATIO N: Menst rual Statu s: LMP (if appli cable ): Clini александр Histo ry/Pr eviou s Pap: Type of Neopl ron (if appli cable ): Signi fican t Clini александр Findi ngs: Other Histo ry: Hormo andrez (if appli cable ): PAP EDUCA JEREMÍAS L NOTE: The Pap Test is a scree erendira test with an inher ent false negat zeus rate. Liqui d-bas ed sampl ing may decre ase, but will not elimi tho, false negat zeus resul ts. A negat zeus resul t does not precl ude the prese nce and/o r devel opmen t of disea se, since the prese nce of abnor mal cells in the sampl e depen ds on the locat ion of the lesio n and sampl ing techn ique. Lobito nued regul ar scree erendira is the best metho d of cance r preve ntion . If repor olvin cytol ogic findi ng do not corre late with physi александр and/o r histo rical findi ngs, furth er inves tigat ion is recom susan d, as clini surjit lovelace nted. Not Available [facility] (Lab) [address], [place], [address], 12/04/2023 17:43:23 11/29/19 24 11/29/2023 CT/GC (SUSANA) , THINP REP VIAL chlamydia trachomatis, PCR Negati ve negati ve Not Available [facility] (Lab) [address], [place], [address], 12/04/2023 17:43:24 11/29/19 24 11/29/2023 CT/GC (SUSANA) , THINP REP VIAL neisseria gonorrhoeae, PCR Negati ve negati ve Not Available [facility] (Lab) [address], [place], [address], 12/04/2023 17:43:24 11/29/19 24 11/29/2023 TRICH OMONA S VAGIN KIMBERLEE (RRNA ) trichomonas vaginalis ribosomal RNA (rrna) Negati ve negati ve Not Available [facility] (Lab) [address], [place], [address], 12/04/2023 17:43:24 10/24/19 24 10/24/2023 US, trans vagin al No observ ation record ed. [email or web address] [place] [address], [place], [address], 11/29/2023 16:21:22 10/24/19 24 10/24/2023 US, trans vagin al No observ ation record ed. [email or web address] [place] [address], [place], [address], 11/29/2023 16:21:22 05/23/20 24 05/23/2024 US, trans vagin al No observ ation record ed. [email or web address] [place] [address], [place], [address], 05/23/2024 16:36:30 05/23/20 24 05/23/2024 US, trans vagin al No observ ation record ed. JANN [facility] [address], [place], [address], 05/24/2024 12:38:00 Result Notes None recorded. Problems Name Problem SNOMED Code Status Onset Date Resolution Date Notes Provider Name and Address Organization Details Recorded Time Pregnanc y 34150725 Completed 202103/09/2023 Shawanda Tyson [facility] 3 16:33:57 Anemia 345910556 Completed 2022 1 tab slowfe daily Shawanda garcia [facility] 3 16:33:52 Intraute rine contrace ptive device in situ 937846497 Active 2022 Tahira Billy MD [address], [place], [address], [facility] 3 17:06:46 Problem Notes None recorded. Procedures Surgical History Date Name Laterality Status Provider Name and Address Organization Details Recorded Time 3 IUD Insertion completed Tahira Billy MD [address], [place], [address], [facility] 04/21/2023 23:07:36 2 LAPAROSCOPY, SURGICAL WITH REMOVAL OF ADNEXAE (SURG) completed Cathy Perez [facility] 02/22/2022 10:05:34 Remove tonsils and adenoids completed Tiesha Moon [facility] 02/09/2022 10:19:17 Imaging Results None recorded. Procedure Notes None recorded. Medical Equipment None Reported. Allergies Allergen ID Allergen Name Allergen Category Reaction Reaction Severity Criticality Documentation Date Start Date Code Code System Note Provider Name and Address Organization Details Recorded Time 80428 amoxicill in medicatio n Not available Not available Not available 02/09/2022 723 RxNorm Tiesha Adamsse garcia [facility] 10:19:04 Medications Name Sig Start Date Stop Date Status Note LastModified by Organization Details LastModified Time Mirena 21 mcg/24 hr (up to 8 years) 52 mg intrauterin e device Take 1 device by intrauter ine route. 2022 active Not Available Not Available Not Avai lable hydrocodone 5 mg-acetamin ophen 325 mg tablet TAKE 1 TABLET BY MOUTH EVERY 4 HOURS NEEDED FOR PAIN 07/04 completed Not Available Not Available Not Available ondansetron HCl 4 mg tablet TAKE 1 TABLET BY MOUTH EVERY 8 HOURS NEEDED FOR NAUSEA. 07/04 completed Not Available Not Available Not Available erythromyci n 5 mg/gram (0.5 %) eye ointment APPLY 1 THIN LAYER IN RIGHT EYE DAILY FOR 7 DAYS 01/10 completed Not Available Not Available Not Available promethazin e 25 mg tablet TAKE 1 TABLET BY MOUTH EVERY 4 HOURS 10/11 completed Not Available Not Available Not Available ibuprofen 600 mg tablet 02/10 completed Not Available Not Available Not Available ondansetron 4 mg disintegrat ing tablet 02/10 completed Not Available Not Available Not Available Nortrel (28) 0.5 mg/0.75 mg/1 mg-35 mcg tablet 02/10 completed Not Available Not Available Not Available Felicia Root 07/04 completed Not Available Not Available Not Available Vitamin 10/11 completed Not Available Not Available Not Available Vitals Date Recorded Body height Body mass index (BMI) Body weight Systolic And Diastolic Provider Name and Address Organization Details Last Updated DateTime 11/29/2023 173.99 cm 21 kg/m2 63740.93 g 120/69 mm[Hg] Sally Marie [facility] 11/29/2023 16:05:20 Date Recorded Body height Body mass index (BMI) Body weight Systolic And Diastolic Provider Name and Address Organization Details Last Updated DateTime 05/21/2024 173.99 cm 20.3 kg/m2 45685.69 g 106/67 mm[Hg] Halima Marleystacy [facility] 05/21/2024 10:11:14 Date Recorded Body height Body mass index (BMI) Body mass index (BMI) [Percentile] Per age and sex Body weight Systolic And Diastolic Provider Name and Address Organization Details Last Updated DateTime 10/11/2023 173.99 cm 21.4 kg/m2 44 % 09210.7 1 g 111/73 mm[Hg] Sally Marie [facility] 16:16:41 Social History Question Answer Notes LastModified by Organizat ion Details LastModified Time Tobacco Smoking Status Current Some Day Smoker Summer garcia, [facility] 10/24/2023 17:11:03 Do You Have An Advance Directive? No Information n ot available 02/10/2022 Are You Blind Or Do You Have Difficulty Seeing? No Information n ot available 02/09/2022 What Is Your Level Of Caffeine Consumption? Moderate Information not available 02/10/2022 How Much Tobacco Do You Chew? None Information not available 02/10/2022 In The 14 Days Before Symptom Onset, Have You Had Close Contact With A Laboratory-confirm ed COVID-19 While That Case Was Ill? No Information n ot available 02/10/2022 In The 14 Days Before Symptom Onset, Have You Had Close Contact With A Person Who Is Under Investigation For COVID-19 While That Person Was Ill? No Information not available 02/10/2022 Have You Been To An Area Known To Be High Risk For COVID-19? No Information not available 02/10/2022 Are You Deaf Or Do You Have Serious Difficulty Hearing? No Information not available 02/09/2022 What Type Of Diet Are You Following? REGULAR Information n ot available 02/10/2022 What Is The Highest Grade Or Level Of School You Have Completed Or The Highest Degree You Have Received? [id number] Information not available 02/10/2022 Are There Any Guns Present In Your Home? No Information not available 02/10/2022 Do You Use Protection During Sex? Usually Information not available 02/10/2022 Do You Use Your Seat Belt Or Car Seat Routinely? Yes Information not available 02/10/2022 Do You Have Smoke And Carbon Monoxide Detectors In Your Home? Yes Information not available 02/10/2022 How Much Tobacco Do You Smoke? No Information not available 02/10/2022 Do You Use Sunscreen Routinely? No Information not available 02/10/2022 Have You Used IV Drugs? No Information not available 02/10/2022 Do You Have Difficulty Walking Or Climbing Stairs? No [email or web address] Information not available 10/24/2023 Sex: Unknown Functional Status Question Answer Note LastModified by Organizat ion Details LastModified Time Do you use any illicit or recreational drugs? No Information not available 02/10/2022 What is your level of alcohol consumption? None Information not available 02/09/2022 Are you able to walk independently without assistance or assistive devices? YESWOREST Information not available 02/09/2022 Are you able to care for yourself independently? 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 No [email or web address] Information not available 10/24/2023 What is your exercise level? Moderate Information not available 02/09/2022 Mental Status Question Answer Note LastModified by Organization D etails LastModified Time Do you feel stressed (tense, restless, nervous, or anxious, or unable to sleep at night)? [id number] Information not available 02/10/2022 Family History Relationship Description Onset Age of this Age Resolved Age Notes LastModified by Organization Details LastModified Time Father No current problems or disability [email or web address] Not available 10/11 16:19:11 Mother No current problems or disability [email or web address] Not available 10/11 16:19:11 Medical History Condition Response Allergies (Food, seasonal, environmental ) N Other N Drug/Latex Allergies/Reactions N Blood Transfusion N Breast Cancer N Dermatologic Disorders N Lung Disease N Defects or Inherited Disease N Breast Problem N Gestational Diabetes N Hematologic disorders N Anesthesia Complications N History of STI N Deep Vein Thrombosis N Polycystic ovary syndrome N Anxiety Disorder N Autoimmune disease N Arthritis N Polyps N Infertility N Acid Reflux (GERD) N History of abnormal pap N Cancer N Varicosities N Stroke N Neurologic/Epilepsy N Endometriosis N High Cholesterol N Fibromyalgia N Headaches N Kidney Disease N Heart Problems N Thyroid Problems N Kidney or Bladder Problems N GI Problems N Eating Disorder N Anemia N Art (IVF or FET) N Psychiatric Illness N Ovarian Cancer N Diabetes N Pulmonary (TB, Asthma) N Hepatitis/Liver Disease N No Past Medical History Y Eczema N Urinary Tract Infection N Abuse/Domestic Violence N Asthma N Trauma/Violence N Depression/ depression N Heart Disease N Pre-Eclampsia N Hypertension N Osteoporosis N Thrombophilias N Gynecological History Statement/Question Response Date of LMP On BCP's at Conception? N N STIs/STDs N Was last menstrual period normal Y HPV Vaccine N Current Control Method IUD Date of control 04/21/2023 Are cycles usually normal Y Sexually Active? Y Menses Monthly N Age of first menstrual cycle 13 Date of Last Pap Smear Sexual Problems? N LMP Unknown N Obstetrics History GPAL:G 1 P 1 0 0 1 Type Value Full Term 1 Living 1 Total 1 Past Encounters Encounter ID Performer Location Encounter Start Date Encounter Closed Date Diagnosis/Indication Diagnosis SNOMED-CT Code Diagnosis ICD10 Code Diagnosis IMO Codes Diagnosis Note [id number] FABBY Vasquez [place] [address] [address] 02/10/2022 11:08:06 02/10/2022 13:47:51 Acute pelvic pain 867607515 R10.2 Cyst of ovary 80433773 N 83.209 Patient diagnosed with right ovarian cyst 3-4cm in size on 01/27/2022 at ER visit for abdominal pain. She has a hx of GI issues, seeing GI specialist about this (chronic N/V) for the past 2 years.The pain in right side is described as a dull ache that comes and goes.She has not been on control for the past 1 year, is okay if occurs. Urine hCG (-) today.Urin e STI testing sent.We discussed ovarian cyst finding and went over the CT/US report. We discussed risk of ovarian torison and red flag symptoms (increased abdominal pain, increase in symptoms, extreme pain). She should go to the ED with these symtpoms.S he denies any fevers, chills, flu-like symptoms, or vaginal symptoms.Ramesh farley discussed monitoring cyst with a repeat US in 6 weeks vs consult with Dr. Thakkar for size/sympt oms. She would like to proceed with MD consult.We discussed comfort measures (heating pad, tylenol/mo frances) in the meantime.P atient to call the office or go to the ED with any worsening symptoms.Ramesh farley discussed restarting an OCP could help to prevent future cyst from occurring, she will consider this. Face-to-fa ce time spent with the patient was 30 minutes discussing imaging findings, pain management , medical hx, and MD consult. [id number] Chandan Thakkar MD [place] [address],[place] [address] 02/15/2022 10:50:20 02/15/2022 13:39:49 Torsion of right ovary 8555464410 1605764 N83.511 this patient is 21-year-ol d female with a likely ovarian torsion. We have agreed for perform laparoscop ic removal of the right adnexa. She understand s the risks, benefits, and alternativ es. She has completed the informed consent process is ready to proceed. We will hope to preserve the right ovary. [id number] Chandan Thakkar MD [place] [address],[facility] [place] [address] 02/22/2022 10:01:25 02/22/2022 10:03:22 [id number] Chandan Thakkar MD [place] [address],[place] [address] 03/07/2022 10:48:46 03/07/2022 12:09:50 Postoperative care 488711992 Z48.89 this patient is a 21-year-ol d female presents for postop follow-up. She had a bilateral ovarian cystectomy . She has had relief of her pain. Her incisions are clean dry and intact. She is recovering normally. Will follow-up as needed. [id number] Chandan Thakkar MD [place] [address],[place] [address] 07/04/2022 15:49:53 07/04/2022 16:35:57 screening 838077885 Z36.87 [id number] Chandan Thakkar MD [place] [address],[place] [address] 07/04/2022 15:50:28 07/04/2022 17:46:08 Nausea and vomiting 95374597 R11.2 Amenorrhea 36076817 N91. 2 this patient is a 21-year-ol d 1 who presented for amenorrhea . She had an ultrasound revealed a 6 week 5 day IUP with the EDC of 02/22/2023 . She has no complaints today other than some nausea. We agreed to treat her nausea. We talked about care in detail. We talked about restrictio ns in . We talked about her medical, surgical, obstetric history. [id number] Chandan Thakkar MD [place] [address],[place] [address] 07/26/2022 15:48:55 07/26/2022 16:20:21 [id number] Chandan Thakkar MD [place] [address],[place] [address] 08/18/2022 16:23:03 08/19/2022 14:08:13 screening 322060148 Z36.82 [id number] MD Jefferson Serrato [address],[place] [address] 08/18/2022 16:23:27 08/19/2022 14:08:48 Routine care 694076179 Z34.92 [id number] MD Jefferson Serrato [address],[place] [address] 09/08/2022 15:58:49 09/09/2022 14:10:25 Routine care 742969562 Z34.92 [id number] MD Jefferson Morin [address],[place] [address] 10/04/2022 15:53:03 10/05/2022 15:25:30 screening 970681045 Z36.3 [id number] MD Jefferson Morin [address],[place] [address] 10/04/2022 15:54:03 10/05/2022 15:26:03 Routine care 786704768 Z34.02 [id number] Nichelle Obrien [facility] [address],[place] [address] 10/31/2022 15:53:23 10/31/2022 17:13:28 Routine care 784170996 Z34.92 [id number] Chandan Thakkar MD [place] [address],[place] [address] 11/08/2022 16:27:32 11/09/2022 15:13:53 screening 916225263 Z36.2 Z3A.24 [id number] Nichelle Obrien [facility] [address],[place] [address] 11/28/2022 11:21:42 11/29/2022 17:07:33 Routine care 326833208 Z34.92 [id number] Chandan Thakkar MD [place] [address],[place] [address] 12/12/2022 15:52:46 12/12/2022 18:25:00 Routine care 142772389 Z34.92 [id number] Chandan Thakkar MD [place] [address],[place] [address] 12/28/2022 15:55:13 12/28/2022 17:02:04 Routine care 598470578 Z34.92 [id number] Tahira Billy MD [place] [address],[place] [address] 01/10/2023 15:56:28 01/11/2023 15:26:12 Routine care 258471983 Z34.02 [id number] Tahira Billy MD [place] [address],[place] [address] 01/24/2023 15:58:13 01/25/2023 14:30:49 Routine care 307915766 Z34.02 [id number] Nichelleedel Obrien [facility] [address],[place] [address] 01/31/2023 17:02:17 01/31/2023 18:17:39 Routine care 157240512 Z34.92 [id number] Tahira Billy MD [place] [address],[place] [address] 02/07/2023 17:25:14 02/08/2023 12:49:13 Routine care 862488774 Z34.02 [id number] Tahira Billy MD [place] [address],[place] [address] 02/14/2023 13:42:50 02/15/2023 14:43:11 Routine care 897558204 Z34.02 [id number] Tahira Billy MD [place] [address],[place] [address] 03/21/2023 15:55:35 03/22/2023 15:11:07 care 746811587 Z39.2 [id number] MD Jefferson Morin [address],[place] [address] 04/21/2023 11:57:09 04/21/2023 22:52:32 Insertion of intrauterine contraceptive device 12068992 Z30.430 [id number] Tahira Billy MD [place] [address],[place] [address] 05/30/2023 16:40:34 05/30/2023 17:07:38 Intrauterine contraceptive device in situ 208365080 Z97.5 mirena 04/21/2023 [id number] [facility] [address],[place] [address] 10/11/2023 16:10:03 10/11/2023 17:01:55 IUD checked - problems 459777492 T83.89XA Spotting and strings significan tly longer than initial insertion. Will update TVUS first.If WNL can come in & we can trim strings.If there is any other issues to reconcile we will discuss those. Patient is to contact office or go to nearest ED/Urgent care if fever >/= 100.1, pain, excessive bleeding, unusual drainage or swelling in area of concern; or experienci ng worsening sx's or new onset of concerning sx's. Understand ing verbalized . All questions answered to patient satisfacti on. Time spent in visit is a total of 18 mins with at least 50% of visit consisting of counseling and review of plan of care. [id number] Chandan Thakkar MD [place] [address],[place] [address] 10/24/2023 17:10:51 10/24/2023 17:40:53 Mechanical complication of intrauterine contraceptive device 648713552 T83.39XA [id number] [facility] [address],[facility] [place] [address] 11/29/2023 15:57:30 11/29/2023 16:24:01 Gynecologic examination 83985555 Z01.419 Take Calcium with Vitamin D 1200mg daily if not receiving in daily diet. It is strongly advised to have an annual flu shot and up can obtain at most pharmacies . If you have not had a TDap shot in the last 10 years you should obtain one as well. Discussed with patient & provided with informatio n regarding Gardisil vaccine to prevent the 4 strains for HPV that cause cervical cancer if under age 26. Encourage safe sexual practices, to use condoms and limit partners if not already in a monogamous relationsh ip. Do monthly self breast exams. Have mammogram yearly or every other year depending on family history. BRCA testing is now available for patients with strong genetic history of female cancer. If interested contact the office. Engage in daily exercise of low impact aerobic exercise 45-60 minutes 4-5 times weekly. Avoid tobacco and illicit drugs as well as using moderation with alcohol intake less than 1-2 8 oz beverages daily. This lifestyle behavior pattern will lead to less health conditions and longer life span. If BMI greater than 25 weight watchers or dietary consult advised. Patient received above instructio ns, and questions have been answered. If you have any questions please call or respond to this email. Patient was made aware of the patient portal and may obtain a paper copy of today's plan if desired. Pap sent STD Screen sent Genetic Screen discussed Colon Screen na Dexa Screen na Routine Labs PCP [id number] CRUZ CEE MD [place] [address] [address] 05/21/2024 10:06:36 05/21/2024 10:36:47 IUD check 451979240 Z30.431 - s/p Mirena IUD placement 03/2023- could not feel strings on self exam- strings seen inside cervical canal on exam, were previously trimmed in 11/2023- will order pelvic US to ensure correct placement given shortening of strings from prior exam [id number] Chandan Thakkar MD [place] [address] [address] 05/23/2024 14:31:09 05/23/2024 15:00:04 Mechanical complication of intrauterine contraceptive device 747498087 T83.39XA Health Concerns Section Related Observation LastModified by Organization Detai ls LastModified Time None Recorded Concern Status LastModified by Organization Details LastModified Time None Recorded Advance Directives Directive N: Payers Insurance Date Sequence Insurance Name Policy Number Policy Miller Covered Member ID Miller Member ID Guarantor Name 05/20/2024 1 [facility] BENEFIT PLAN MANAGEMENT - [employer] [id number] Agustina Rogers [id number] Agustina Rogers 05/23/2024 2 [facility] - DOS ON OR AFTER 21 (MEDICAID REPLACEMENT - HMO) Bri Rogers [id number] Agustina Rogers 02/06/2023 3 [place] Bri Rogers [id number] Agustina Rogers 02/06/2023 3 [place] Bri Rogers [id number] Agustina oRgers Notes Date Note Type Note Provider Name and Address Organization Details Recorded Time 10/11/20 23 text/ht ml ROS as noted in the HPI Here today for IUD string check,Strings felt longer than they normally do when doing her monthly string checkHad a little spotting earlier in the week.Has not had a menses since placement. Briana Hernandez [facility] [address], [place], [address], [facility] 10/11/2023 17:00:52 11/29/19 24 text/ht ml Annual GYNReported by PatientHistoryFor history, patient reportsno gynecologic complaints.Genitourinary symptomsFor menstrual cycle, patient reportsnormal menses. For urinary symptoms, patient reportsno hematuriaandno incontinence. For vulva, patient reportsno genital lesion. For vagina, patient reportsnormal vaginal discharge.Breast symptomsFor breast, patient reportsno breast pain,no breast lump, andno nipple discharge.ContraceptionFor current contraception, patient reportssatisfied with current contraceptionandintrauterine device (iud).Endocrine symptomsFor sexual complaints, patient reportsno sexual complaints,no pain during intercourse, andnormal libido. For menopausal symptoms, patient reportsno menopausal symptomsandnormal vaginal lubrication.Psychological symptomsFor psychological symptoms, patient reportsno depression,no anxiety, andno pmdd.Preventative measuresFor preventive measures, patient reportsencourage self breast examination,encourage regular exercise,encourage no tobacco use,encourage regular mammograms starting age 40, andfollowed with yearly pap smears. Briana Hernandez [facility] [address], [place], [address], [facility] 11/29/2023 16:23:23 05/21/20 24 text/ht ml Patient presents for lost IUD strings. Was doing a string check and could not feel them. Strings trimmed in November. No irregular bleeding, no pelvic pain. CRUZ CEE MD [address], [place], [address], [facility] 05/21/2024 10:30:13 OBGyn Episode Ob Episode Information Episode Created Date Number of Fetuses Patient Bloodtype Patient rh Status Prepregnancy Weight lbs Domestic Partner Domestic Partner Phone Father Name Pick Up Operator Status 08/18/20 22 1 O Positive 126 CLOSED Fetus Data First Name Last Name Admitted to NICU Weight (g) Sex Living Outcome Pediatric Complications Fetus ID Race Codes Race Delivery Type Anthony 3316.89 15 F true Full Term [id number] Vaginal Delivery Problems Problem Notes Problem Name Start Date End Date Resolution Snomed Code Not e Anemia 12/05/2022 MEDICATION [id number] 1 tab sl owfe daily Clemente Calculation Initial Clemente Date Initial Exam Date Initial Exam Provider Initial Ultrasound Date Last Menstrual Period Date Ultra Sound Weeks Gestation 02/22/2023 08/18/2022 07/04/2022 6 Eighteen To Twenty Week Clemente Update Ultra Sound Date Fundal Height At Umbil Quickening Date Ultra Sound Latest Weeks Gestation Final Clemente Confirmed By Final Clemente Confirmed Date Final Clemente Date Ultra Sound Latest Days Gestation 0 [email or web address] 02/14/2023 02/23/20 23 0 Pre- Flowsheet Flowsheet Date 08/18/2022 Smiley Score Blood Edema Fundus Height Fundus Units Glucose Ketones Leukocytes Nitrite Labor Signs Protein Cervic Dilation Cervic Effacement Cervic Station Type Weight in lbs Pre/Post Dialysis Refused BP Diastolic BP Location Tested BP Systolic BP Type Fetus Heart Rate Present Fetus Movement Comments Flowsheet Date 08/18/2022 Smiley Score Blood Edema Fundus Height Fundus Units Glucose Ketones Leukocytes Nitrite Labor Signs Protein Cervic Dilation Cervic Effacement Cervic Station 13 Type Weight in lbs Pre/Post Dialysis Refused Weight 129.568383273908 BP Diastolic BP Location Tested BP Systolic BP Type 65 R arm 111 sitting Fetus Heart Rate Present A 143 Fetus Movement Comments this patient is a 21-year-ol d 113 weeks gestation who presents for initial care. She is not vaccinated for COVID but has been infected. She has an unremarkable medical, surgical, obstetric history. Discussed care in detail. She will begin routine care. She is having genetic testing of fetus and herself. Flowsheet Date 09/08/2022 Smiley Score Blood Edema Fundus Height Fundus Units Glucose Ketones Leukocytes Nitrite Labor Signs Protein Cervic Dilation Cervic Effacement Cervic Station 17 Type Weight in lbs Pre/Post Dialysis Refused Weight 132.537476652391 BP Diastolic BP Location Tested BP Systolic BP Type 63 R arm 104 sitting Fetus Heart Rate Present A 143 Fetus Movement Comments No problems, routine care Flowsheet Date 10/04/2022 Smiley Score Blood Edema Fundus Height Fundus Units Glucose Ketones Leukocytes Nitrite Labor Signs Protein Cervic Dilation Cervic Effacement Cervic Station Type Weight in lbs Pre/Post Dialysis Refused BP Diastolic BP Location Tested BP Systolic BP Type Fetus Heart Rate Present Fetus Movement Comments Flowsheet Date 10/04/2022 Smiley Score Blood Edema Fundus Height Fundus Units Glucose Ketones Leukocytes Nitrite Labor Signs Protein Cervic Dilation Cervic Effacement Cervic Station neg trace none trace Type Weight in lbs Pre/Post Dialysis Refused Weight 135.19898401637 BP Diastolic BP Location Tested BP Systolic BP Type 66 112 Fetus Heart Rate Present A 165 Fetus Movement A Yes Comments Doing fine, no concerns. Shayla oscar complete and wnl except for heart views suboptimal. Complete next visit. Flowsheet Date 10/31/2022 Smiley Score Blood Edema Fundus Height Fundus Units Glucose Ketones Leukocytes Nitrite Labor Signs Protein Cervic Dilation Cervic Effacement Cervic Station none Type Weight in lbs Pre/Post Dialysis Refused Weight 143.392091847373 BP Diastolic BP Location Tested BP Systolic BP Type 64 R arm 120 sitting Fetus Heart Rate Present A 155 Fetus Movement Comments Doing well. Having a girl. P alcides epidural for labor pain management. . Encouraged classes. Will have ultrasound to get incomplete heart views in 1-2 weeks. Next routine visit in 4 weeks with gtt. Flowsheet Date 11/08/2022 Smiley Score Blood Edema Fundus Height Fundus Units Glucose Ketones Leukocytes Nitrite Labor Signs Protein Cervic Dilation Cervic Effacement Cervic Station Type Weight in lbs Pre/Post Dialysis Refused BP Diastolic BP Location Tested BP Systolic BP Type Fetus Heart Rate Present Fetus Movement Comments Flowsheet Date 11/28/2022 Smiley Score Blood Edema Fundus Height Fundus Units Glucose Ketones Leukocytes Nitrite Labor Signs Protein Cervic Dilation Cervic Effacement Cervic Station neg none 28 Type Weight in lbs Pre/Post Dialysis Refused Weight 155.94184985297 BP Diastolic BP Location Tested BP Systolic BP Type 69 113 Fetus Heart Rate Present A 147 Fetus Movement A Yes Comments Doing well. GTT today. Encou raged tdap. Flowsheet Date 12/12/2022 Smiley Score Blood Edema Fundus Height Fundus Units Glucose Ketones Leukocytes Nitrite Labor Signs Protein Cervic Dilation Cervic Effacement Cervic Station 31 Type Weight in lbs Pre/Post Dialysis Refused Weight 160.727062374488 BP Diastolic BP Location Tested BP Systolic BP Type 64 R arm 119 sitting Fetus Heart Rate Present A 128 Fetus Movement Comments no complaints, no problems, routine care. Flowsheet Date 12/28/2022 Smiley Score Blood Edema Fundus Height Fundus Units Glucose Ketones Leukocytes Nitrite Labor Signs Protein Cervic Dilation Cervic Effacement Cervic Station 32 Type Weight in lbs Pre/Post Dialysis Refused Weight 159.261048574452 BP Diastolic BP Location Tested BP Systolic BP Type 68 R arm 125 sitting Fetus Heart Rate Present A 145 Fetus Movement A Yes Comments being treated for pink eye, is c/o R ear pain May have upper respiratory ENT infection that is starting, she is to call us if it worsens and will send antibiotics Flowsheet Date 01/10/2023 Smiley Score Blood Edema Fundus Height Fundus Units Glucose Ketones Leukocytes Nitrite Labor Signs Protein Cervic Dilation Cervic Effacement Cervic Station neg trace 35 none trace Type Weight in lbs Pre/Post Dialysis Refused Weight 165.365470528305 BP Diastolic BP Location Tested BP Systolic BP Type 71 115 Fetus Heart Rate Present A 140 Fetus Movement A Yes Comments Doing well except tired. Enc ouraged preregistration. Flowsheet Date 01/24/2023 Smiley Score Blood Edema Fundus Height Fundus Units Glucose Ketones Leukocytes Nitrite Labor Signs Protein Cervic Dilation Cervic Effacement Cervic Station neg trace 34 none trace Type Weight in lbs Pre/Post Dialysis Refused Weight 166.041364159185 BP Diastolic BP Location Tested BP Systolic BP Type 87 133 Fetus Heart Rate Present A 120 Fetus Movement A Yes Comments Doing well. NO concerns. GBS next, discussed. Flowsheet Date 01/31/2023 Smiley Score Blood Edema Fundus Height Fundus Units Glucose Ketones Leukocytes Nitrite Labor Signs Protein Cervic Dilation Cervic Effacement Cervic Station none 36 none trace Type Weight in lbs Pre/Post Dialysis Refused Weight 170.825478705571 BP Diastolic BP Location Tested BP Systolic BP Type 76 122 Fetus Heart Rate Present A 143 Fetus Movement A Yes Comments Doing well. Pre admit done. Labor precautions discussed. Flowsheet Date 02/07/2023 Smiley Score Blood Edema Fundus Height Fundus Units Glucose Ketones Leukocytes Nitrite Labor Signs Protein Cervic Dilation Cervic Effacement Cervic Station neg none 37 trace trace 1cm 60% Type Weight in lbs Pre/Post Dialysis Refused Weight 171.515697967977 BP Diastolic BP Location Tested BP Systolic BP Type 68 142 70 124 Fetus Heart Rate Present A 140 Fetus Movement A Yes Comments Doing fine. GBS neg. Pressur e increasing. Cervix 1.5/60. Labor precautions. Flowsheet Date 02/14/2023 Smiley Score Blood Edema Fundus Height Fundus Units Glucose Ketones Leukocytes Nitrite Labor Signs Protein Cervic Dilation Cervic Effacement Cervic Station neg none 34 none trace 2cm 60% -2 Type Weight in lbs Pre/Post Dialysis Refused Weight 172.430032647148 BP Diastolic BP Location Tested BP Systolic BP Type 80 132 Fetus Heart Rate Present A 135 Fetus Movement A Yes Comments Doing well. Good FM. Very un comfortable, would like IOL when able, no provider preference. Will schedule, discussed RBA. Questions answered. Precautions given. Menstrual History Last Menstrual Date Menses Monthly On Bcp Conception Prior Menses Frequency Hcg Plus Date Menarche Onset Age Genetic Screening And Infection History Question Response Note Mental Retardation/Autism false Patient's Age Will Be 35 Years Or Older At Estim ated Date of Delivery false Thalassemia (Burmese, Central African, Mediterranean, Or Background): MCV < 80 false Neural Tube Defect (Meningomyelocele, Spina Bifi da, Or Anencephaly) false Congenital Heart Defect false Down Syndrome false Lenard-Sachs (eg, Anabaptist, Cajun, South Korean-Omro) f alse Ashely Disease false Sickle Cell Disease Or Trait () false Hemophilia Or Other Blood Disorders false Muscular Dystrophy false Cystic Fibrosis false Liz's Chorea false Intellectual Disability/Autism false If Yes, Was Person Tested For Fragile X? false Other Inherited Genetic Or Chromosomal Disorder false Maternal Metabolic Disorder (eg, Type 1 Diabetes , PKU) false Patient Or Baby's Father Had A Child With Defects Not Listed Above false Recurrent Loss, Or A Stillbirth false Medications (including Suppl ements, Vitamins, Herbs, OTC Drugs), Illicit/Recreational Drugs, Alcohol false If Yes, Agent(s) And Strength/Dosage false Any Other Genetic History false Live With Someone With TB Or Exposed To TB false Patient Or Partner Has History Of Genital Herpes false Rash Or Viral Illness Since Last Menstrual Perio d false History Of STD, Gonorrhea, Chlamydia, HPV, Syphi lis false Other Infection History false History of HIV false History of Hepatitis false Prior GBS-infected child false Hemoglobinopathy Or Carrier false Other Structural Defect false Recent Travel History Outside of Country false Delivery Information Delivery Date Delivery Type Labor Anesthesia Weeks Gestation Incision Type Labor Labor Length Hrs Delivered By Post Complications Tubal Sterilization Discharge Date Comments 3 Induce d Regional-Ep idural 39.5 false Tahira Billy MD Anemia Discharge Information Feeding Method Contraceptive Method Maternal HG B and HCT Levels
--- OUTSIDE RECORDS SUMMARY | 2025-08-19 17:44 | XMS_ITS | Clinical Summary ---
Author Organization [facility] [employer] Address [address] [place] [address] [place] [address] Care Team Providers Care Water Tender Name Role Phone Unavailable Primary Care Provider Unavailabl e Allergies Active Allergy Reactions Criticality Noted Date Comments Amoxicillin Rash Low 12/03/2019 Medications ondansetron (ZOFRAN) 4 mg TabletIndication s:Abdominal pain, right upper quadrant Take 1 Tablet (4 mg) by mouth every 12 hours as needed for Nausea/Emes is. 4 Tablet 06/11/2021 Active norethin-e.estra diol triphasic ([facility] , ,) 0.5/0.75/1 mg- 35 mcg tabletIndication s:Encounter for [...] INFLUENZA VACCINE (#1) 2025 Insurance OPTIONS PPO [id number] * Guarantor: [employer] Account Type Relation to Patient Date of Phone Billing Address Corporate Employer ATTN: NEVA AKBAR [address] [address]
--- OUTSIDE RECORDS SUMMARY | 2025-08-19 17:44 | XMS_ITS | Clinical Summary ---
Author Organization [facility] Address [address] [place] [address] Phone Care Team Providers Care Aquaculturist Name Role Phone David Triplett MD Primary Care Provider [phone] Allergies Active Allergy Reactions Criticality Noted Date [...] 2 - Standard) 2018 Pap Smear 2023 Influenza Immunization (#1) 2025 08/16/2011, 1 2002 SARS-COV-2 Immunization () 06/23/2025 Respiratory Syncytial Virus (RSV) Immunization (Adult) (1 [...] MEDICAID [employer] Care Teams Aquaculturist Relationship Specialty Start Date End Date David Triplett MD [address] [place] [id number] PCP - General Emergency Medicine 07/21/20
--- OUTSIDE RECORDS SUMMARY | 2025-08-19 17:45 | XMS_ITS | Clinical Summary ---
Author Organization [facility] Address [address] [facility] [place] [address] Care Team Providers Care Plater Hot Dip Name Role Phone Unavailable Primary Care Provider Unavailabl e Source Comments [facility],non-owned Affiliates and Associated Physician Practices is amultiple site organization consisting of ambulatory clinics and hospital sitesin [place], [place], [place] and [place]. This disclosure is being madepursuant to the Care Everywhere program and may not contain all information available regarding this patient. 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[employer] Gender Identity Not on file Sexual Orientation [...] of 3 - 19+ 3-dose series) 2021 DEPRESSION SCREENING 10/23/2024 COVID-19 VACCINE (1 - 2023-2 5 season) 2025 INFLUENZA VACCINE (#1) 2025 ZOSTER VACCINE (1 of 2) 2052 HIB VACCINE Aged Out No longer eligi ble based on patient's age to complete this topic MENINGOCOCCAL GROUPS A/C/Y/W VACCINE Aged Out No longer eligible b ased on patient's age to complete this topic PNEUMOCOCCAL VACCINE Aged Out No long er eligible based on patient's age to complete this topic [place] [address] [place] [address] [facility] [place] [address] [employer] [facility] CIG
== END 2025-08-19 15:48 | disposition home or self-care (01) ==
LOC: ANHIMG 15:48
PROVIDERS: Visit Provider Plastic Surgery
DX: M25.731 Osteophyte, right wrist (principal); S56.512A Strain of other extensor muscle, fascia and tendon at forearm level, left arm, initial encounter; S63.091A Other subluxation of right wrist and hand, initial encounter; X58.XXXA Exposure to other specified factors, initial encounter; M67.40 Ganglion, unspecified site
CPT/HCPCS: 73223; A9577

== ENCOUNTER 2025-09-09 13:00 | Outpatient (RCR) | payer OTHER, SELFPAY ==
--- NOTE | 2025-08-05 12:12 | OTOPEVAL1 ---
Assessment and note entered by Maxim Kasper, JESÚS/Jenni, CHT Evaluation Information Assessment Status Evaluation Diagnosis M67.40 Ganglion, unspecified site ICD-10 Condition Codes (OT) Pain in right wrist M25.531 Subjective Information Patient reports going on 3 months of right wrist pain. She reports it began after a fall where she caught herself on an extended wrist/hand. She went to urgent care about a month after the fall due to progressive pain and she began to feel shooting pain into the fingers that became unbearable. She was referred to Dr. Ghotra. She has tried a wrist immobilizer for about a month and she also received a cortisone injection. She reports no relief from these interventions. She has an MRI scheduled 08/19/25. 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 She reports difficulties activities that require gripping and wrist motion such as opening jars, gripping, sweeping and mopping, lifting and carrying her 2 year old daughter. She reports constant pain and intermittent tingling. Reported Pain Level Pain Score 1: Self Report Additional Pain Score Comments She reports a constant achy pain in the dorsal hand/wrist. She reports the pain can become more sharp, shooting pain with hand use. Assessment OT Clinical Summary Patient referred to OT with right wrist pain sustained ~3 months ago. Diagnosis includes ganglion cyst vs tendonitis. Testing today consistent with tendonitis of the 2nd dorsal compartment. She has trialed an off the shelf wrist immobilizer, however the straps lay directly over the sore spot on the dorsum of her wrist. Today a custom wrist cock up orthosis was fabricated to rest the wrist. She was issued active ROM for tendon glide. Continued skilled OT indicated for use of modalities, therapeutic exercise, manual therapy, splinting, and HEP instruction and progression to facilitate improved functional use of her right/dominant UE. Plan of Care Interventions Therapeutic Exercise,Manual Therapy,Neuro Re- education,Therapeutic Activities,Hot Pack/Cold Pack,Check Out for Orthotic/Prosthetic,Ultrasound, Paraffin OT Services Indicated Yes Treatment Frequency and 1x/week for 5 visits Duration Pt unable to attend 2x/week due to childcare and work schedule. These treatments will address the objective and functional deficits as defined above. The patient will be advanced safely and appropriately in order for the patient to progress towards his/her prior level of function. Additional exercises will be introduced and as well as a comprehensive home exercise program upon discharge, if needed, ?to ensure carryover of functional gains achieved in the clinic. This treatment plan has been reviewed and agreement upon by the patient.
--- NOTE | 2025-08-05 12:12 | OPREHPOC ---
Outpatient Therapy Plan of Care This is a Multidisciplinary Plan of Care that may contain components documented by all disciplines (PT, OT, and ST.) OT Goal 1 Goal / Goal Update 1. Pt to be independent with instructed materials. Target Visit 5 OT Problem 2 OT Problem #2 Impaired Balance OT Goal 1 Goal / Goal Update 1. Pt to report reduced (R) wrist pain during ADLs , gripping, lifting, etc. to 2/10 or less. Target Visit 5 OT Problem 3 OT Problem #3 Impaired Strength OT Goal 1 Goal / Goal Update Pt to increase functional strength of the (R) UE for ADLs as measured by: 1. being able to complete right wrist strengthening in all planes with 2 lb. free weight without pain x10 reps 2. increase right refinish technician strength to 55 lbs. Target Visit 5
--- NOTE | 2025-09-09 13:59 | OTOPPROG ---
Assessment and note entered by Maxim Kasper, JESÚS/Jenni, CHT Evaluation Information Assessment Status Progress Diagnosis M67.40 Ganglion, unspecified site ICD-10 Condition Codes (OT) Pain in right wrist M25.531 Subjective Information Patient reports getting relief from therapy, stating she is having less pain with light use, however she continues to report high levels of pain with heavier use. She is now able to move the mop bucket at work (with pain), when before she would have to completely avoid this task. 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 She continues to try to avoid carrying her daughter with the right UE due to the pain. She at times has to catch her daughter and she reports this pain is excruciating. She has an appointment with [facility] hand specialist 09/16/25 due to MRI findings, listed below. She continues to report constant pain, never getting to 0/10. She has a wrist cock up that she wears as needed as there are some tasks she cannot do with it on due to causing popping in the wrist. 08/29/25 MRI IMPRESSION: 1. Carpal bossing at the articulation between the capitate and the base of the third metacarpal which underlies the marker indicating the palpable abnormality of concern. No ganglion cyst or abnormally enhancing masses. 2. Tear of the ulnar side of the extensor carpi ulnaris sub sheath resulting ulnar subluxation of the normal extensor carpi ulnaris tendon across the ulnar rim of the ECU groove. Assessment OT Clinical Summary Patient referred to OT with right wrist pain sustained ~4 months ago. She has been participating in therapy with the goals of reducing pain and promoting return of functional strength for ADLs. Patient continues to experience high amounts of pain with heavy use, but has progressed to less pain with light tasks. 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 The pain at the site of the carpal boss is reduced and most of her pain is located on the ulnar side of the wrist at the ECU tendon at and just distal to the ulnar styloid. She is currently performing active ROM only of the wrist as her pain is exacerbated by strengthening. Continued skilled OT indicated for use of modalities, therapeutic exercise, manual therapy, splinting, and HEP instruction and progression to facilitate improved functional use of her right/dominant UE. Plan of Care Interventions Therapeutic Exercise,Manual Therapy,Neuro Re- education,Therapeutic Activities,Hot Pack/Cold Pack,Check Out for Orthotic/Prosthetic,Ultrasound, Paraffin OT Services Indicated Yes Treatment Frequency and 1x/week for 5 visits Duration Pt unable to attend 2x/week due to childcare and work schedule. These treatments will address the objective and functional deficits as defined above. The patient will be advanced safely and appropriately in order for the patient to progress towards his/her prior level of function. Additional exercises will be introduced and as well as a comprehensive home exercise program upon discharge, if needed, ?to ensure carryover of functional gains achieved in the clinic. This treatment plan has been reviewed and agreement upon by the patient.
--- NOTE | 2025-09-09 13:59 | OPREHPOC ---
Outpatient Therapy Plan of Care This is a Multidisciplinary Plan of Care that may contain components documented by all disciplines (PT, OT, and ST.) OT Goal 1 Goal / Goal Update 1. Pt to be independent with instructed materials. ---OT POC UPDATE 09/09/25--- 1. Met, continue as HEP is progressed Target Visit 5 OT Problem 2 OT Problem #2 Impaired Balance OT Goal 1 Goal / Goal Update 1. Pt to report reduced (R) wrist pain during ADLs , gripping, lifting, etc. to 2/10 or less. ---OT POC UPDATE 09/09/25--- 1. Not met, continue to treat and address pain Target Visit 5 OT Problem 3 OT Problem #3 Impaired Strength OT Goal 1 Goal / Goal Update Pt to increase functional strength of the (R) UE for ADLs as measured by: 1. being able to complete right wrist strengthening in all planes with 2 lb. free weight without pain x10 reps 2. increase right buckle assembler strength to 55 lbs. ---OT POC UPDATE 09/09/25--- 1. Not met due to MRI showing ECU tear. Discontinue goal. 2. Met. Target Visit 5
--- NOTE | 2025-09-25 09:07 | PCOTNOTE ---
Patient called with an update. She reports she is scheduled 10/07 to have the carpal boss removed. She will have an appointment with the surgeon 2 weeks later and they will talk about post-op therapy then. She has the fax number to have them send us a new order.
--- NOTE | 2025-10-02 08:22 | OTOPDC ---
Assessment and note entered by Maxim Kasper, OTR/Jenni, CANDY OT D/C 10/02/25 Assessment Status Discharge - Pt Not Present Diagnosis M67.40 Ganglion, unspecified site ICD-10 Condition Codes (OT) Pain in right wrist M25.531 OT Clinical Summary Progress summary from 09/09/25: Patient referred to OT with right wrist pain sustained ~4 months ago. She has been participating in therapy with the goals of reducing pain and promoting return of functional strength for ADLs. Patient continues to experience high amounts of pain with heavy use, but has progressed to less pain with light tasks. 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 The pain at the site of the carpal boss is reduced and most of her pain is located on the ulnar side of the wrist at the ECU tendon at and just distal to the ulnar styloid. She is currently performing active ROM only of the wrist as her pain is exacerbated by strengthening. Continued skilled OT indicated for use of modalities, therapeutic exercise, manual therapy, splinting, and HEP instruction and progression to facilitate improved functional use of her right/dominant UE. OT discharge notification 10/02/25: Patient called after she followed up with [facility] surgeon. She reports she is undergoing carpal boss removal on 10/07/25. She will continue to follow this surgeon and therapy will be waiting for new orders to resume treatment when indicated. D/C OT services at this time.
== END 2025-10-02 14:44 | disposition home or self-care (01) ==
LOC: ANHGOSHOT 13:00
PROVIDERS: Visit Provider Plastic Surgery
DX: M67.40 Ganglion, unspecified site (principal)
CPT/HCPCS: 97018; 97110; 97166; L3906